=== PATIENT | female | born 1960 | race African-American/Black ===

== ENCOUNTER 2022-04-30 09:08 | Inpatient (IN) ==
[2022-04-30 10:44] LABS: ABS Lymphocytes 2.2 10^3/ul (1.0-4.8); ABS Monocytes 0.7 10^3/ul (0-0.8); ABS Neutrophils 9.2 10^3/ul (1.5-7.7); Eosinophil % 0.3 %; Hematocrit 33 % (35-47); Hemoglobin 10.9 g/dL (12.0-16.0); Lymphocyte % 18.4 %; Mean Corpuscular HGB Conc 33 g/dL (31-36); Mean Corpuscular Hemoglobin 30 pg (27-31); Mean Corpuscular Volume 89 fL (80-97); Mean Platelet Volume 7.5 fL (7.4-10.4); Platelet Count 359 10^3/uL (150-450); Red Blood Count 3.66 10^6 /uL (3.70-4.87); Red Cell Distribution Width 13 % (10-15); White Blood Count 12.2 10^3/uL (3.5-10.8)
[2022-04-30 11:22] LABS: Albumin 3.9 g/dL (3.2-5.2); CO2 Carbon Dioxide 15 mmol/L (22-32); Chloride 94 mmol/L (101-111); Sodium 138 mmol/L (135-145)
[2022-04-30 11:23] LABS: Anion Gap 29 mmol/L (2-11)
[2022-04-30 11:28] LABS: ALT 14 U/L (7-52); Albumin/Globulin Ratio 1.3 (1-3); Alkaline Phosphatase 86 U/L (35-149); Blood Urea Nitrogen 109 mg/dL (6-24); Globulin 3.1 g/dL (2-4); Glucose 107 mg/dL (70-100); eGFR CKD-EPI 2.8 (>60)
[2022-04-30] MEDS ORDERED: Lactated Ringers 1000 ml BAG 1,000 ML IV ONE (11:44)
[2022-04-30] MEDS ORDERED: CALCIUM GLUCONATE 1GM/50ML NS 1 GM/50 ML BAG IV ONE (11:45)
[2022-04-30] MEDS ORDERED: Potassium Chlor 20 meq TAB.ER PO ONE ×3 (11:45→22:00)
[2022-04-30] MEDS: KCL 20 MEQ/100 ML IVPREMIX 20 MEQ/100 ML BAG IV SCH ×2 (12:03→14:57)
[2022-04-30 12:30] LABS: Potassium Redraw 2.9 mmol/L (3.5-5.0)
[2022-04-30 13:28] LABS: Phosphorus 9.7 mg/dL (2.5-5.0)
[2022-04-30] MEDS ORDERED: Lactated Ringers 1000 ml BAG 1,000 ML IV SCH (14:00)
[2022-04-30 14:06] LABS: Magnesium 0.9 mg/dL (1.9-2.7)
[2022-04-30] MEDS ORDERED: Magnesium Sulfate IV 3 GM in NS 0.9% 100 ml BAG 100 ML IVPB ONE (14:45)
[2022-04-30] MEDS: Magnesium Sulfate IV 3 GM in NS 0.9% 100 ml BAG 100 ML IVPB ONE ×2 (15:59→17:14)
[2022-04-30] MEDS: Heparin 5000 UNITS/ML 1 mL VIAL SUBCUT SCH ×2 (16:43→22:06)
[2022-04-30] MEDS: Lactated Ringers 1000 ml BAG 1,000 ML IV SCH ×2 (17:23→20:51)
[2022-04-30] MEDS: CALCIUM GLUCONATE 1GM/50ML NS 1 GM/50 ML BAG IV SCH (18:17)
[2022-04-30 19:26] LABS: Magnesium 1.9 mg/dL (1.9-2.7); Phosphorus 7.6 mg/dL (2.5-5.0); Potassium 3.1 mmol/L (3.5-5.0); eGFR CKD-EPI 3.3 (>60)
[2022-04-30 19:52] LABS: Vitamin D Total 25(OH) 14.3 ng/mL (20-50)
[2022-04-30 21:10] LABS: Urine Appearance Cloudy; Urine Bilirubin Negative (Negative); Urine Blood 1+ (Negative); Urine Color Yellow; Urine Glucose Negative (Negative); Urine Ketones Negative (Negative); Urine Nitrite Negative (Negative); Urine Protein 2+(100 mg/dL) (Negative); Urine Specific Gravity 1.017 (1.002-1.030); Urine Urobilinogen Negative (Negative)
[2022-04-30 21:24] LABS: Urine Bacteria 1+ (Absent); Urine Red Blood Cell 1+(3-5/hpf) (Absent); Urine Squamous Epithelial Cell Present (Absent); Urine White Blood Cell 2+(11-20/hpf) (Absent)
[2022-05-01] MEDS: CALCIUM GLUCONATE 1GM/50ML NS 1 GM/50 ML BAG IV SCH ×3 (01:00→14:18)
[2022-05-01] MEDS: Lactated Ringers 1000 ml BAG 1,000 ML IV SCH (01:55)
[2022-05-01 04:57] LABS: ABS Basophils 0.1 10^3/ul (0-0.2); ABS Eosinophils 0.1 10^3/ul (0-0.6); ABS Lymphocytes 1.7 10^3/ul (1.0-4.8); ABS Neutrophils 9.4 10^3/ul (1.5-7.7); Eosinophil % 0.6 %; Hematocrit 28 % (35-47); Hemoglobin 9.4 g/dL (12.0-16.0); Lymphocyte % 14.2 %; Mean Corpuscular HGB Conc 33 g/dL (31-36); Mean Corpuscular Hemoglobin 29 pg (27-31); Mean Corpuscular Volume 89 fL (80-97); Mean Platelet Volume 7.5 fL (7.4-10.4); Platelet Count 299 10^3/uL (150-450); Red Blood Count 3.21 10^6 /uL (3.70-4.87); Red Cell Distribution Width 13 % (10-15); White Blood Count 12.3 10^3/uL (3.5-10.8)
[2022-05-01 05:28] LABS: Magnesium 1.8 mg/dL (1.9-2.7); Phosphorus 6.9 mg/dL (2.5-5.0); eGFR CKD-EPI 3.2 (>60)
[2022-05-01 05:31] LABS: Calcium 5.8 mg/dL (8.6-10.3)
[2022-05-01] MEDS: Heparin 5000 UNITS/ML 1 mL VIAL SUBCUT SCH ×3 (06:11→21:54)
[2022-05-01] MEDS ORDERED: Magnesium Sulfate 2 gm BAG 2 GM/50 ML BAG IVPB ONE (07:17)
[2022-05-01] MEDS ORDERED: Potassium Chlor 20 meq TAB.ER PO ONE ×3 (07:18→14:59)
[2022-05-01] MEDS: Cholecalciferol (VIT D3) 1,000 unit TAB PO SCH (07:27)
[2022-05-01] MEDS ORDERED: Prochlorperazine 5 mg/ml 2 ml VIAL (10 mg) IV PRN (07:32)
[2022-05-01] MEDS ORDERED: Prochlorperazine 5 mg/ml 2 ml VIAL (10 mg) ONE (07:33)
[2022-05-01] MEDS ORDERED: Lactated Ringers 1000 ml BAG 1,000 ML IV ONE (09:32)
[2022-05-01 12:19] LABS: Anion Gap 16 mmol/L (2-11); Blood Urea Nitrogen 102 mg/dL (6-24); CO2 Carbon Dioxide 21 mmol/L (22-32); Chloride 101 mmol/L (101-111); Glucose 134 mg/dL (70-100); Sodium 138 mmol/L (135-145); eGFR CKD-EPI 3.7 (>60)
[2022-05-01 12:32] LABS: ALT 11 U/L (7-52); AST 13 U/L (13-39); Albumin 3.2 g/dL (3.2-5.2); Albumin/Globulin Ratio 1.4 (1-3); Alkaline Phosphatase 70 U/L (35-149); Globulin 2.3 g/dL (2-4); Total Protein 5.5 g/dL (6.4-8.9)
[2022-05-01 12:33] LABS: Calcium 6.5 mg/dL (8.6-10.3); Magnesium 2.6 mg/dL (1.9-2.7); Phosphorus 6.5 mg/dL (2.5-5.0)
[2022-05-01 13:31] LABS: Hepatitis B Surface Antigen Nonreactive (Nonreactive)
[2022-05-01 13:36] LABS: Hepatitis B Core IgM Nonreactive (Nonreactive)
[2022-05-01 13:48] LABS: Hepatitis B Surface Ab Not Immune (Immune)
[2022-05-01 16:45] LABS: Albumin 3.3 g/dL (3.2-5.2); Albumin/Globulin Ratio 1.4 (1-3); Calcium 6.8 mg/dL (8.6-10.3); Globulin 2.4 g/dL (2-4); Total Bilirubin 0.3 mg/dL (0.2-1.0); Total Protein 5.7 g/dL (6.4-8.9)
[2022-05-01] MEDS ORDERED: Calcium Gluconate 2 GM in NS 0.9% 100 ml BAG 100 ML IV ONE (18:11)
[2022-05-01] MEDS: CALCIUM GLUCONATE 1GM/50ML NS BAG IV SCH ×2 (19:15→21:53)
[2022-05-02] MEDS: KCL 20 MEQ/100 ML IVPREMIX 20 MEQ/100 ML BAG IV SCH ×2 (00:54→04:26)
[2022-05-02] MEDS ORDERED: Potassium Chlor 20 meq TAB.ER PO ONE ×2 (03:59→13:34)
[2022-05-02] MEDS: Heparin 5000 UNITS/ML 1 mL VIAL SUBCUT SCH ×3 (05:12→20:54)
[2022-05-02 05:58] LABS: ABS Lymphocytes 1.4 10^3/ul (1.0-4.8); ABS Monocytes 1.1 10^3/ul (0-0.8); ABS Neutrophils 9.3 10^3/ul (1.5-7.7); Eosinophil % 0.4 %; Hematocrit 29 % (35-47); Hemoglobin 9.5 g/dL (12.0-16.0); Mean Corpuscular HGB Conc 32 g/dL (31-36); Mean Corpuscular Hemoglobin 29 pg (27-31); Mean Corpuscular Volume 90 fL (80-97); Mean Platelet Volume 7.5 fL (7.4-10.4); Platelet Count 291 10^3/uL (150-450); Red Blood Count 3.26 10^6 /uL (3.70-4.87); Red Cell Distribution Width 13 % (10-15); White Blood Count 11.9 10^3/uL (3.5-10.8)
[2022-05-02 06:20] LABS: Calcium 7.2 mg/dL (8.6-10.3); Magnesium 1.9 mg/dL (1.9-2.7); Phosphorus 5.5 mg/dL (2.5-5.0); Potassium 3.8 mmol/L (3.5-5.0); eGFR CKD-EPI 5.9 (>60)
[2022-05-02] MEDS ORDERED: Lactated Ringers 1000 ml BAG 1,000 ML IV SCH (08:00)
[2022-05-02] MEDS: Cholecalciferol (VIT D3) 1,000 unit TAB PO SCH (08:59)
[2022-05-02] MEDS ORDERED: CALCIUM GLUCONATE 1GM/50ML NS 1 GM/50 ML BAG IV ONE (13:34)
[2022-05-03] MEDS: Heparin 5000 UNITS/ML 1 mL VIAL SUBCUT SCH ×3 (06:25→21:35)
[2022-05-03 06:37] LABS: ABS Basophils 0.1 10^3/ul (0-0.2); ABS Eosinophils 0.2 10^3/ul (0-0.6); ABS Lymphocytes 2.2 10^3/ul (1.0-4.8); ABS Monocytes 1.2 10^3/ul (0-0.8); Eosinophil % 1.2 %; Hematocrit 29 % (35-47); Hemoglobin 9.5 g/dL (12.0-16.0); Lymphocyte % 17.8 %; Mean Corpuscular HGB Conc 33 g/dL (31-36); Mean Corpuscular Hemoglobin 30 pg (27-31); Mean Corpuscular Volume 90 fL (80-97); Mean Platelet Volume 8.1 fL (7.4-10.4); Nucleated Red Blood Cells % 0.1; Platelet Count 266 10^3/uL (150-450); Red Blood Count 3.23 10^6 /uL (3.70-4.87); Red Cell Distribution Width 13 % (10-15); White Blood Count 12.6 10^3/uL (3.5-10.8)
[2022-05-03 06:51] LABS: Magnesium 1.3 mg/dL (1.9-2.7); eGFR CKD-EPI 9.9 (>60)
[2022-05-03] MEDS ORDERED: Magnesium Sulfate 2 gm BAG 2 GM/50 ML BAG IVPB ONE (07:37)
[2022-05-03] MEDS ORDERED: Sodium Bicarbonate 8.4% SYR 50 ml SYRINGE IV ONE (08:02)
[2022-05-03] MEDS: Cholecalciferol (VIT D3) 1,000 unit TAB PO SCH (08:38)
[2022-05-03] MEDS: Calcium Carb (TUMS) 500 mg CHEW TAB PO SCH ×2 (08:39→21:35)
[2022-05-03] MEDS: Sodium Bicarb 650 mg (ANTACID) TAB PO SCH ×3 (08:39→21:34)
[2022-05-03 16:15] LABS: Calcium 7.1 mg/dL (8.6-10.3); Magnesium 1.7 mg/dL (1.9-2.7); eGFR CKD-EPI 11.1 (>60)
[2022-05-04] MEDS: Heparin 5000 UNITS/ML 1 mL VIAL SUBCUT SCH ×3 (05:36→21:07)
[2022-05-04 06:37] LABS: ABS Basophils 0.1 10^3/ul (0-0.2); ABS Eosinophils 0.3 10^3/ul (0-0.6); ABS Lymphocytes 2.6 10^3/ul (1.0-4.8); ABS Monocytes 1.2 10^3/ul (0-0.8); ABS Neutrophils 8.6 10^3/ul (1.5-7.7); Eosinophil % 2.2 %; Hematocrit 27 % (35-47); Hemoglobin 8.8 g/dL (12.0-16.0); Lymphocyte % 20.2 %; Mean Corpuscular HGB Conc 33 g/dL (31-36); Mean Corpuscular Hemoglobin 30 pg (27-31); Mean Corpuscular Volume 90 fL (80-97); Mean Platelet Volume 8.1 fL (7.4-10.4); Platelet Count 231 10^3/uL (150-450); Red Blood Count 2.96 10^6 /uL (3.70-4.87); Red Cell Distribution Width 13 % (10-15); White Blood Count 12.7 10^3/uL (3.5-10.8)
[2022-05-04 06:54] LABS: Calcium 6.7 mg/dL (8.6-10.3); Magnesium 1.4 mg/dL (1.9-2.7); Potassium 3.5 mmol/L (3.5-5.0); eGFR CKD-EPI 12.8 (>60)
[2022-05-04] MEDS: Calcium Carb (TUMS) 500 mg CHEW TAB PO SCH ×2 (10:55→21:08)
[2022-05-04] MEDS: Sodium Bicarb 650 mg (ANTACID) TAB PO SCH ×3 (10:57→21:07)
[2022-05-04] MEDS: Cholecalciferol (VIT D3) 1,000 unit TAB PO SCH (10:57)
[2022-05-04] MEDS: Potassium Chlor 20 meq TAB.ER PO SCH (10:58)
[2022-05-04] MEDS ORDERED: Magnesium Sulfate 2 gm BAG 2 GM/50 ML BAG IVPB ONE (14:37)
[2022-05-04] MEDS: KCL 20 MEQ/100 ML IVPREMIX 20 MEQ/100 ML BAG IV SCH ×2 (15:43→18:17)
[2022-05-04] MEDS: Penicillin G Potassium IV 3,000,000 UNITS in NS 0.9% 100 ml BAG 100 ML IVPB SCH ×2 (17:46→21:08)
[2022-05-04] MEDS ORDERED: Magnesium Sulfate IV 1GM/100ML 1 GM/100 ML BAG IV ONE (20:08)
[2022-05-05] MEDS: Penicillin G Potassium IV 3,000,000 UNITS in NS 0.9% 100 ml BAG 100 ML IVPB SCH ×2 (04:41→10:05)
[2022-05-05] MEDS: Heparin 5000 UNITS/ML 1 mL VIAL SUBCUT SCH ×2 (05:57→15:28)
[2022-05-05 05:58] LABS: ABS Basophils 0.1 10^3/ul (0-0.2); ABS Eosinophils 0.2 10^3/ul (0-0.6); ABS Lymphocytes 2.7 10^3/ul (1.0-4.8); ABS Monocytes 1.2 10^3/ul (0-0.8); ABS Neutrophils 9.4 10^3/ul (1.5-7.7); Eosinophil % 1.8 %; Hematocrit 25 % (35-47); Hemoglobin 8.1 g/dL (12.0-16.0); Mean Corpuscular HGB Conc 32 g/dL (31-36); Mean Corpuscular Hemoglobin 29 pg (27-31); Mean Corpuscular Volume 91 fL (80-97); Mean Platelet Volume 7.8 fL (7.4-10.4); Platelet Count 216 10^3/uL (150-450); Red Blood Count 2.77 10^6 /uL (3.70-4.87); Red Cell Distribution Width 13 % (10-15); White Blood Count 13.6 10^3/uL (3.5-10.8)
[2022-05-05 06:25] LABS: Calcium 6.8 mg/dL (8.6-10.3); Magnesium 1.8 mg/dL (1.9-2.7); Potassium 4.1 mmol/L (3.5-5.0); eGFR CKD-EPI 16.7 (>60)
[2022-05-05] MEDS ORDERED: Magnesium Sulfate 2 gm BAG 2 GM/50 ML BAG IVPB ONE (07:15)
[2022-05-05] MEDS: Cholecalciferol (VIT D3) 1,000 unit TAB PO SCH (07:44)
[2022-05-05] MEDS: Sodium Bicarb 650 mg (ANTACID) TAB PO SCH ×2 (07:46→15:28)
[2022-05-05] MEDS: Potassium Chlor 20 meq TAB.ER PO SCH (07:46)
[2022-05-05] MEDS: Calcium Carb (TUMS) 500 mg CHEW TAB PO SCH (07:47)
[2022-05-05 07:56] LABS: Phosphorus 4.1 mg/dL (2.5-5.0)
[2022-05-05 15:20] VITALS: BP 132/82
[2022-05-05 15:39] LABS: HIV 4th Generation Nonreactive (Nonreactive)
[2022-05-08 13:25] LABS: Albumin 2.5 g/dL (3.4-4.7); Albumin/Globulin Ratio 1.01; Gamma Globulin 0.7 g/dL (0.6-1.6); Total Protein(PEP) 4.9 g/dL (6.3 - 7.9)
== END 2022-05-05 17:16 | disposition home or self-care (01) | DRG 469 ==
LOC: ED 09:08 → SUATTDRO 12:33 → EDHOLD 12:33 → ICU 16:01 → MEDTELE 05-01 09:53
PROVIDERS: ADMIT Internal Medicine; ATTEND Internal Medicine

== ENCOUNTER 2023-02-19 19:37 | Inpatient (IN) ==
[2023-02-20 02:49] LABS: ABS Basophils 0.1 10^3/uL (0.0-0.1); ABS Monocytes 1.4 10^3/uL (0.0-0.9); ABS Neutrophils 17.5 10^3/uL (1.5-7.6); ABS Nucleated RBC 0.05 10^3/ul; Hematocrit 40.1 % (35-45); Hemoglobin 13.4 g/dL (11.5-14.3); Lymphocyte % 5.2 %; Mean Corpuscular Hemoglobin 30.6 pg (27-33); Mean Corpuscular Hgb Conc 33.4 g/dL (31-36); Mean Corpuscular Volume 91.7 fL (80-97); Mean Platelet Volume 7.5 fL (7.5-11.2); Nucleated Red Blood Cells % 0.3 /100 WBC (0.0-0.4); Platelet Count 337 10^3/uL (150-450); Red Blood Count 4.37 10^6/uL (3.63-4.92); Red Cell Distribution Width 13.6 % (12-17)
[2023-02-20 03:06] LABS: ALT 8 U/L (7-52); AST 12 U/L (13-39); Albumin 4.2 g/dL (3.2-5.2); Albumin/Globulin Ratio 1.3 (1-3); Alkaline Phosphatase 66 U/L (35-149); Blood Urea Nitrogen 122 mg/dL (6-24); C Reactive Protein 24.43 mg/L (<8.01); Calcium 7.9 mg/dL (8.6-10.3); Chloride 99 mmol/L (101-111); Creatinine, Serum 7.51 mg/dL (0.51-0.95); Globulin 3.2 g/dL (2-4); Glucose 143 mg/dL (70-100); Lipase < 10 U/L (11.0-82.0); Potassium 4.4 mmol/L (3.5-5.0); Sodium 132 mmol/L (135-145); Total Protein 7.4 g/dL (6.4-8.9); eGFR CKD-EPI 5.6 (>60)
[2023-02-20 03:10] LABS: Anion Gap 20 mmol/L (2-16); CO2 Carbon Dioxide 13 mmol/L (22-32)
[2023-02-20] MEDS ORDERED: NS 0.9% 1000 ml BAG 2,000 ML IV ONE (03:58)
[2023-02-20 08:54] LABS: Creatinine, Serum 6.66 mg/dL (0.51-0.95); Potassium 3.7 mmol/L (3.5-5.0); eGFR CKD-EPI 6.5 (>60)
[2023-02-20 09:13] LABS: Calcium 5.8 mg/dL (8.6-10.3)
[2023-02-20] MEDS ORDERED: Pantoprazole VIAL 40 MG VIAL IV ONE (09:34)
[2023-02-20] MEDS ORDERED: SODIUM BICARB IV ONE (10:00)
[2023-02-20] MEDS ORDERED: D5LR IV SCH (10:00)
[2023-02-20] MEDS ORDERED: [UNRECOGNIZED DRUG - OTHER] IV SCH (10:00)
[2023-02-20] MEDS ORDERED: [UNRECOGNIZED DRUG - OTHER] IV ONE (10:00)
[2023-02-20] MEDS ORDERED: POTASSIUM CHLORIDE IV ONE (10:00)
[2023-02-20] MEDS ORDERED: SODIUM BICARB IV SCH (10:00)
[2023-02-20 10:15] LABS: Magnesium 1.2 mg/dL (1.9-2.7)
[2023-02-20 10:18] LABS: Urine Appearance Cloudy; Urine Bilirubin Negative (Negative); Urine Blood Negative (Negative); Urine Color Yellow; Urine Glucose Negative (Negative); Urine Ketones Negative (Negative); Urine Nitrite Negative (Negative); Urine Protein 1+(30 mg/dL) (Negative); Urine Specific Gravity 1.019 (1.002-1.030); Urine Urobilinogen Negative (Negative)
[2023-02-20 11:09] LABS: Urine Bacteria 1+ (Absent); Urine Red Blood Cell Trace(0-2/hpf) (Absent); Urine Squamous Epithelial Cell Present (Absent); Urine Transitional Epithelial Present (Absent); Urine White Blood Cell 1+(6-10/hpf) (Absent)
[2023-02-20] MEDS ORDERED: Magnesium Sulfate 2 gm BAG 2 GM/50 ML BAG IVPB ONE (13:50)
[2023-02-20] MEDS ORDERED: cloNIDine 0.3 MG PATCH 0.3 MG/24 HR 7 DAY PATCH TRANSDERM SCH (15:00)
[2023-02-20] MEDS: CALCIUM GLUCONATE 1GM/50ML NS 1 GM/50 ML BAG IV SCH ×2 (17:29→20:16)
[2023-02-20] MEDS: PTO:Pancrelipase 36,000 units (NF) PO SCH (17:33)
[2023-02-20] MEDS: Sodium Bicarb 650 mg (ANTACID) TAB PO SCH (20:11)
[2023-02-20] MEDS: Calcium Carb (TUMS) 500 mg CHEW TAB PO SCH (20:15)
[2023-02-20] MEDS ORDERED: Calcium Carb (TUMS) 500 mg CHEW TAB PO SCH (21:00)
[2023-02-20] MEDS: Sucralfate 1 gm SUSP 1 GM/10 ML UDC PO SCH (21:56)
[2023-02-21 00:04] LABS: Hematocrit 29.7 % (35-45); Mean Corpuscular Hemoglobin 30.4 pg (27-33); Mean Corpuscular Hgb Conc 33.6 g/dL (31-36); Mean Corpuscular Volume 90.4 fL (80-97); Mean Platelet Volume 7.5 fL (7.5-11.2); Platelet Count 267 10^3/uL (150-450); Red Blood Count 3.29 10^6/uL (3.63-4.92); Red Cell Distribution Width 13.8 % (12-17); White Blood Count 14.5 10^3/uL (3.8-11.8)
[2023-02-21 00:21] LABS: Albumin 3.1 g/dL (3.2-5.2); Calcium 7.6 mg/dL (8.6-10.3); Creatinine, Serum 6.57 mg/dL (0.51-0.95); Magnesium 1.9 mg/dL (1.9-2.7); Phosphorus 5.9 mg/dL (2.5-5.0); Potassium 3.9 mmol/L (3.5-5.0); eGFR CKD-EPI 6.6 (>60)
[2023-02-21 04:56] LABS: Hematocrit 27.9 % (35-45); Hemoglobin 9.5 g/dL (11.5-14.3); Mean Corpuscular Hemoglobin 30.8 pg (27-33); Mean Corpuscular Hgb Conc 34.1 g/dL (31-36); Mean Corpuscular Volume 90.3 fL (80-97); Mean Platelet Volume 7.6 fL (7.5-11.2); Platelet Count 253 10^3/uL (150-450); Red Blood Count 3.09 10^6/uL (3.63-4.92); Red Cell Distribution Width 13.2 % (12-17); White Blood Count 13.4 10^3/uL (3.8-11.8)
[2023-02-21 05:13] LABS: Calcium 7.3 mg/dL (8.6-10.3); Creatinine, Serum 6.25 mg/dL (0.51-0.95); Magnesium 1.9 mg/dL (1.9-2.7); Potassium 3.9 mmol/L (3.5-5.0)
[2023-02-21] MEDS: Sucralfate 1 gm SUSP 1 GM/10 ML UDC PO SCH ×4 (05:51→22:00)
[2023-02-21] MEDS: PTO:Pancrelipase 36,000 units (NF) PO SCH ×3 (08:59→17:34)
[2023-02-21] MEDS: Sodium Bicarb 650 mg (ANTACID) TAB PO SCH ×3 (09:00→21:59)
[2023-02-21] MEDS: Calcium Carb (TUMS) 500 mg CHEW TAB PO SCH ×2 (09:00→21:59)
[2023-02-21] MEDS: CALCIUM GLUCONATE 1GM/50ML NS 1 GM/50 ML BAG IV SCH ×4 (09:02→21:58)
[2023-02-21] MEDS ORDERED: Lactated Ringers 1000 ml BAG 1,000 ML IV SCH (11:00)
[2023-02-21] MEDS: Enoxaparin 30 MG/0.3 ML SYR SUBCUT SCH (11:51)
[2023-02-22 06:18] LABS: Hematocrit 26.8 % (35-45); Hemoglobin 9.3 g/dL (11.5-14.3); Mean Corpuscular Hemoglobin 31.2 pg (27-33); Mean Corpuscular Hgb Conc 34.5 g/dL (31-36); Mean Corpuscular Volume 90.4 fL (80-97); Mean Platelet Volume 7.3 fL (7.5-11.2); Platelet Count 254 10^3/uL (150-450); Red Blood Count 2.97 10^6/uL (3.63-4.92); Red Cell Distribution Width 13.5 % (12-17); White Blood Count 10.2 10^3/uL (3.8-11.8)
[2023-02-22 06:34] LABS: Calcium 8.6 mg/dL (8.6-10.3); Creatinine, Serum 3.09 mg/dL (0.51-0.95); Potassium 3.5 mmol/L (3.5-5.0); eGFR CKD-EPI 16.3 (>60)
[2023-02-22] MEDS: Sucralfate 1 gm SUSP 1 GM/10 ML UDC PO SCH ×4 (07:37→20:03)
[2023-02-22] MEDS: PTO:Pancrelipase 36,000 units (NF) PO SCH ×3 (09:55→17:46)
[2023-02-22] MEDS: Calcium Carb (TUMS) 500 mg CHEW TAB PO SCH ×2 (09:56→20:03)
[2023-02-22] MEDS: Sodium Bicarb 650 mg (ANTACID) TAB PO SCH ×3 (09:57→20:03)
[2023-02-22] MEDS: Enoxaparin 30 MG/0.3 ML SYR SUBCUT SCH (09:58)
[2023-02-23 06:14] LABS: Mean Corpuscular Hemoglobin 31.4 pg (27-33); Mean Corpuscular Hgb Conc 34.7 g/dL (31-36); Mean Corpuscular Volume 90.4 fL (80-97); Mean Platelet Volume 7.2 fL (7.5-11.2); Platelet Count 264 10^3/uL (150-450); Red Blood Count 2.87 10^6/uL (3.63-4.92); Red Cell Distribution Width 13.6 % (12-17); White Blood Count 9.2 10^3/uL (3.8-11.8)
[2023-02-23 06:31] LABS: Calcium 8.3 mg/dL (8.6-10.3); Creatinine, Serum 2.01 mg/dL (0.51-0.95); Potassium 3.5 mmol/L (3.5-5.0); eGFR CKD-EPI 27.4 (>60)
[2023-02-23] MEDS: Sucralfate 1 gm SUSP 1 GM/10 ML UDC PO SCH ×4 (07:43→19:56)
[2023-02-23 08:06] LABS: Magnesium 1.5 mg/dL (1.9-2.7)
[2023-02-23] MEDS: PTO:Pancrelipase 36,000 units (NF) PO SCH ×3 (08:37→17:35)
[2023-02-23] MEDS: Sodium Bicarb 650 mg (ANTACID) TAB PO SCH ×3 (08:38→19:55)
[2023-02-23] MEDS: Calcium Carb (TUMS) 500 mg CHEW TAB PO SCH ×2 (08:38→19:55)
[2023-02-23] MEDS: Enoxaparin 30 MG/0.3 ML SYR SUBCUT SCH (12:44)
[2023-02-24] MEDS: Sucralfate 1 gm SUSP 1 GM/10 ML UDC PO SCH ×4 (09:13→22:24)
[2023-02-24] MEDS: PTO:Pancrelipase 36,000 units (NF) PO SCH ×3 (09:13→17:36)
[2023-02-24] MEDS: Sodium Bicarb 650 mg (ANTACID) TAB PO SCH ×3 (09:13→22:24)
[2023-02-24] MEDS: Calcium Carb (TUMS) 500 mg CHEW TAB PO SCH ×2 (09:13→22:24)
[2023-02-24 10:13] LABS: Creatinine, Serum 1.69 mg/dL (0.51-0.95); Potassium 3.6 mmol/L (3.5-5.0)
[2023-02-24 10:14] LABS: Calcium 8.3 mg/dL (8.6-10.3); Magnesium 1.3 mg/dL (1.9-2.7); eGFR CKD-EPI 33.7 (>60)
[2023-02-24] MEDS: Enoxaparin 30 MG/0.3 ML SYR SUBCUT SCH (11:07)
[2023-02-24] MEDS ORDERED: Magnesium Sulf 4 GM/100 ML IV 4,000 MG/100 ML BAG IVPB ONE (13:37)
[2023-02-25 06:35] LABS: Calcium 8.7 mg/dL (8.6-10.3); Creatinine, Serum 1.39 mg/dL (0.51-0.95); Potassium 3.6 mmol/L (3.5-5.0); eGFR CKD-EPI 42.6 (>60)
[2023-02-25] MEDS: Sucralfate 1 gm SUSP 1 GM/10 ML UDC PO SCH ×2 (08:09→12:52)
[2023-02-25] MEDS: Sodium Bicarb 650 mg (ANTACID) TAB PO SCH ×2 (08:11→12:52)
[2023-02-25] MEDS: PTO:Pancrelipase 36,000 units (NF) PO SCH ×2 (08:11→12:52)
[2023-02-25] MEDS: Calcium Carb (TUMS) 500 mg CHEW TAB PO SCH (08:12)
[2023-02-25 09:55] VITALS: BP 168/92
[2023-02-25] MEDS: Enoxaparin 30 MG/0.3 ML SYR SUBCUT SCH (12:52)
== END 2023-02-25 13:15 | disposition home or self-care (01) | DRG 683 ==
LOC: ED 19:37 → SUATTDRO 02-20 09:49 → EDHOLD 02-20 09:49 → ICU 02-20 12:00 → UNDODISIN 02-20 13:08 → MED 02-20 16:00
PROVIDERS: ADMIT Internal Medicine Critical Care Medicine; ATTEND Internal Medicine

== ENCOUNTER 2023-03-04 11:11 | Inpatient (IN) ==
[2023-03-04] MEDS ORDERED: Lactated Ringers 1000 ml BAG 1,000 ML IV ONE ×2 (13:08→17:10)
[2023-03-04 13:29] LABS: Hematocrit 34.8 % (35-45); Hemoglobin 11.6 g/dL (11.5-14.3); Mean Corpuscular Hemoglobin 30.1 pg (27-33); Mean Corpuscular Hgb Conc 33.3 g/dL (31-36); Mean Corpuscular Volume 90.4 fL (80-97); Platelet Count 479 10^3/uL (150-450); Red Blood Count 3.85 10^6/uL (3.63-4.92); Red Cell Distribution Width 13.5 % (12-17); White Blood Count 20.7 10^3/uL (3.8-11.8)
[2023-03-04 13:41] LABS: Albumin 4.3 g/dL (3.2-5.2); Anion Gap 10 mmol/L (2-16); CO2 Carbon Dioxide 24 mmol/L (22-32); Calcium 9.2 mg/dL (8.6-10.3); Chloride 106 mmol/L (101-111); Potassium 3.9 mmol/L (3.5-5.0); Sodium 140 mmol/L (135-145)
[2023-03-04 13:47] LABS: ALT 10 U/L (7-52); AST 14 U/L (13-39); Albumin/Globulin Ratio 1.2 (1-3); Alkaline Phosphatase 72 U/L (35-149); Blood Urea Nitrogen 54 mg/dL (6-24); Creatinine, Serum 4.21 mg/dL (0.51-0.95); Globulin 3.5 g/dL (2-4); Glucose 111 mg/dL (70-100); Lipase < 10 U/L (11.0-82.0); Total Protein 7.8 g/dL (6.4-8.9); eGFR CKD-EPI 11.3 (>60)
[2023-03-04] MEDS ORDERED: Ondansetron 4 mg VIAL 2 MG/ML 2 ml VIAL IV PRN (17:24)
[2023-03-04] MEDS: Morphine 2 MG/ML SYRINGE IV PRN (18:06)
[2023-03-04] MEDS: Lactated Ringers 1000 ml BAG 1,000 ML IV SCH (20:36)
[2023-03-04 21:00] LABS: Calcium 8.5 mg/dL (8.6-10.3); Potassium 3.6 mmol/L (3.5-5.0)
[2023-03-04 21:06] LABS: Creatinine, Serum 3.94 mg/dL (0.51-0.95); eGFR CKD-EPI 12.2 (>60)
[2023-03-04] MEDS: Pantoprazole VIAL 40 MG VIAL IV SCH (22:19)
[2023-03-04] MEDS: Calcium Carb (TUMS) 500 mg CHEW TAB PO SCH (22:19)
[2023-03-04] MEDS: Sodium Bicarb 650 mg (ANTACID) TAB PO SCH (22:20)
[2023-03-05] MEDS: Lactated Ringers 1000 ml BAG 1,000 ML IV SCH ×2 (03:20→10:53)
[2023-03-05 03:35] LABS: Urine Appearance Cloudy; Urine Bilirubin Negative (Negative); Urine Blood Negative (Negative); Urine Color Yellow; Urine Glucose Negative (Negative); Urine Ketones Negative (Negative); Urine Nitrite Negative (Negative); Urine Protein 1+(30 mg/dL) (Negative); Urine Specific Gravity 1.013 (1.002-1.030); Urine Urobilinogen Negative (Negative)
[2023-03-05 03:45] LABS: Urine Bacteria 1+ (Absent); Urine Red Blood Cell 1+(3-5/hpf) (Absent); Urine Squamous Epithelial Cell Present (Absent); Urine White Blood Cell 1+(6-10/hpf) (Absent)
[2023-03-05 06:40] LABS: ABS Basophils 0.1 10^3/uL (0.0-0.1); ABS Eosinophils 0.2 10^3/uL (0.0-0.5); ABS Lymphocytes 2.6 10^3/uL (1.0-4.8); ABS Monocytes 1.3 10^3/uL (0.0-0.9); ABS Neutrophils 13.4 10^3/uL (1.5-7.6); Hematocrit 25.8 % (35-45); Hemoglobin 8.7 g/dL (11.5-14.3); Lymphocyte % 14.8 %; Mean Corpuscular Hemoglobin 30.6 pg (27-33); Mean Corpuscular Hgb Conc 33.8 g/dL (31-36); Mean Corpuscular Volume 90.7 fL (80-97); Mean Platelet Volume 6.9 fL (7.5-11.2); Platelet Count 350 10^3/uL (150-450); Red Blood Count 2.85 10^6/uL (3.63-4.92); Red Cell Distribution Width 13.5 % (12-17); White Blood Count 17.6 10^3/uL (3.8-11.8)
[2023-03-05 07:00] LABS: Anion Gap 6 mmol/L (2-16); Blood Urea Nitrogen 47 mg/dL (6-24); CO2 Carbon Dioxide 22 mmol/L (22-32); Calcium 8.1 mg/dL (8.6-10.3); Chloride 111 mmol/L (101-111); Creatinine, Serum 3.19 mg/dL (0.51-0.95); Glucose 79 mg/dL (70-100); Potassium 3.9 mmol/L (3.5-5.0); Sodium 139 mmol/L (135-145); eGFR CKD-EPI 15.7 (>60)
[2023-03-05 08:19] LABS: Urine Appearance Cloudy; Urine Bilirubin Negative (Negative); Urine Blood Negative (Negative); Urine Color Yellow; Urine Glucose Negative (Negative); Urine Ketones Negative (Negative); Urine Nitrite Negative (Negative); Urine Protein Negative (Negative); Urine Specific Gravity 1.012 (1.002-1.030); Urine Urobilinogen Negative (Negative)
[2023-03-05] MEDS: PTO: Pancrelipase 36,000 units (NF) PO SCH ×3 (10:09→17:59)
[2023-03-05] MEDS: Pantoprazole VIAL 40 MG VIAL IV SCH ×2 (10:47→21:40)
[2023-03-05] MEDS: Morphine 2 MG/ML SYRINGE IV PRN ×2 (13:49→21:54)
[2023-03-05] MEDS: Cholecalciferol (VIT D3) 1,000 unit TAB PO SCH (13:50)
[2023-03-05] MEDS: Sodium Bicarb 650 mg (ANTACID) TAB PO SCH ×3 (13:51→21:38)
[2023-03-05] MEDS: Calcium Carb (TUMS) 500 mg CHEW TAB PO SCH ×2 (13:54→21:39)
[2023-03-05 14:46] LABS: C Reactive Protein < 1.00 mg/L (<8.01)
[2023-03-05 16:11] LABS: ABS Basophils 0.1 10^3/uL (0.0-0.1); ABS Eosinophils 0.2 10^3/uL (0.0-0.5); ABS Lymphocytes 2.4 10^3/uL (1.0-4.8); ABS Monocytes 1.1 10^3/uL (0.0-0.9); ABS Neutrophils 11.4 10^3/uL (1.5-7.6); ABS Nucleated RBC 0.02 10^3/ul; Eosinophil % 1.4 %; Hematocrit 24.5 % (35-45); Hemoglobin 8.2 g/dL (11.5-14.3); Mean Corpuscular Hemoglobin 30.5 pg (27-33); Mean Corpuscular Hgb Conc 33.7 g/dL (31-36); Mean Corpuscular Volume 90.5 fL (80-97); Mean Platelet Volume 6.6 fL (7.5-11.2); Nucleated Red Blood Cells % 0.1 /100 WBC (0.0-0.4); Platelet Count 344 10^3/uL (150-450); Red Blood Count 2.71 10^6/uL (3.63-4.92); Red Cell Distribution Width 13.7 % (12-17); White Blood Count 15.3 10^3/uL (3.8-11.8)
[2023-03-05] MEDS ORDERED: Lactated Ringers 1000 ml BAG 1,000 ML IV ONE (17:32)
[2023-03-05] MEDS: Polyethylene Glycol 3350 17 GM PACKET PO SCH (18:11)
[2023-03-05 18:32] LABS: Erythrocyte Sed Rate 16 mm/Hr (0-29)
[2023-03-06 05:59] LABS: ABS Basophils 0.1 10^3/uL (0.0-0.1); ABS Eosinophils 0.2 10^3/uL (0.0-0.5); ABS Lymphocytes 2.3 10^3/uL (1.0-4.8); ABS Monocytes 1.1 10^3/uL (0.0-0.9); ABS Neutrophils 7.2 10^3/uL (1.5-7.6); Eosinophil % 1.9 %; Hematocrit 24.2 % (35-45); Hemoglobin 8.4 g/dL (11.5-14.3); Lymphocyte % 21.3 %; Mean Corpuscular Hemoglobin 31.4 pg (27-33); Mean Corpuscular Hgb Conc 34.6 g/dL (31-36); Mean Corpuscular Volume 90.8 fL (80-97); Mean Platelet Volume 6.8 fL (7.5-11.2); Platelet Count 324 10^3/uL (150-450); Red Blood Count 2.67 10^6/uL (3.63-4.92); Red Cell Distribution Width 13.2 % (12-17)
[2023-03-06 06:12] LABS: Calcium 8.2 mg/dL (8.6-10.3); Creatinine, Serum 1.91 mg/dL (0.51-0.95); Potassium 3.8 mmol/L (3.5-5.0); eGFR CKD-EPI 29.1 (>60)
[2023-03-06] MEDS: Pantoprazole VIAL 40 MG VIAL IV SCH ×2 (08:16→21:23)
[2023-03-06] MEDS: Cholecalciferol (VIT D3) 1,000 unit TAB PO SCH (08:16)
[2023-03-06] MEDS: Calcium Carb (TUMS) 500 mg CHEW TAB PO SCH ×2 (08:16→21:24)
[2023-03-06] MEDS: Polyethylene Glycol 3350 17 GM PACKET PO SCH (08:16)
[2023-03-06] MEDS: Sodium Bicarb 650 mg (ANTACID) TAB PO SCH ×3 (08:17→21:23)
[2023-03-06] MEDS: PTO: Pancrelipase 36,000 units (NF) PO SCH ×3 (10:40→17:33)
[2023-03-07] MEDS: PTO: Pancrelipase 36,000 units (NF) PO SCH ×3 (08:35→16:26)
[2023-03-07] MEDS: Calcium Carb (TUMS) 500 mg CHEW TAB PO SCH ×2 (08:35→21:34)
[2023-03-07] MEDS: Polyethylene Glycol 3350 17 GM PACKET PO SCH (08:36)
[2023-03-07] MEDS: Cholecalciferol (VIT D3) 1,000 unit TAB PO SCH (08:36)
[2023-03-07] MEDS: Sodium Bicarb 650 mg (ANTACID) TAB PO SCH ×3 (08:37→21:34)
[2023-03-07] MEDS: Pantoprazole VIAL 40 MG VIAL IV SCH ×2 (08:38→21:34)
[2023-03-07] MEDS ORDERED: cloNIDine 0.3 MG PATCH 0.3 MG/24 HR 7 DAY PATCH TRANSDERM SCH (09:00)
[2023-03-07] MEDS ORDERED: Glycerin ADULT 2.4 gm SUPP PR PRN (14:26)
[2023-03-07] MEDS: Morphine 2 MG/ML SYRINGE IV PRN (22:40)
[2023-03-08 05:56] LABS: ABS Basophils 0.1 10^3/uL (0.0-0.1); ABS Eosinophils 0.3 10^3/uL (0.0-0.5); ABS Lymphocytes 2.3 10^3/uL (1.0-4.8); ABS Monocytes 0.9 10^3/uL (0.0-0.9); ABS Neutrophils 6.1 10^3/uL (1.5-7.6); Eosinophil % 2.6 %; Hematocrit 25.3 % (35-45); Hemoglobin 8.7 g/dL (11.5-14.3); Lymphocyte % 23.5 %; Mean Corpuscular Hgb Conc 34.5 g/dL (31-36); Mean Corpuscular Volume 89.8 fL (80-97); Mean Platelet Volume 6.8 fL (7.5-11.2); Platelet Count 350 10^3/uL (150-450); Red Blood Count 2.82 10^6/uL (3.63-4.92); White Blood Count 9.6 10^3/uL (3.8-11.8)
[2023-03-08 06:20] LABS: Albumin 3.3 g/dL (3.2-5.2); Albumin/Globulin Ratio 1.4 (1-3); Calcium 8.5 mg/dL (8.6-10.3); Creatinine, Serum 1.44 mg/dL (0.51-0.95); Globulin 2.4 g/dL (2-4); Potassium 3.9 mmol/L (3.5-5.0); Total Bilirubin 0.2 mg/dL (0.2-1.0); Total Protein 5.7 g/dL (6.4-8.9); eGFR CKD-EPI 40.9 (>60)
[2023-03-08] MEDS: Pantoprazole VIAL 40 MG VIAL IV SCH ×2 (08:33→20:51)
[2023-03-08] MEDS: Cholecalciferol (VIT D3) 1,000 unit TAB PO SCH (08:35)
[2023-03-08] MEDS: Calcium Carb (TUMS) 500 mg CHEW TAB PO SCH ×2 (08:35→20:50)
[2023-03-08] MEDS: Sodium Bicarb 650 mg (ANTACID) TAB PO SCH ×3 (08:36→20:51)
[2023-03-08] MEDS: PTO: Pancrelipase 36,000 units (NF) PO SCH ×3 (08:37→17:14)
[2023-03-08] MEDS: Polyethylene Glycol 3350 17 GM PACKET PO SCH (08:53)
[2023-03-08] MEDS: Morphine 2 MG/ML SYRINGE IV PRN (21:11)
[2023-03-09] MEDS: Morphine 2 MG/ML SYRINGE IV PRN (03:34)
[2023-03-09 06:13] LABS: Albumin 3.2 g/dL (3.2-5.2); Albumin/Globulin Ratio 1.4 (1-3); Calcium 8.5 mg/dL (8.6-10.3); Creatinine, Serum 1.47 mg/dL (0.51-0.95); Globulin 2.3 g/dL (2-4); Magnesium 1.3 mg/dL (1.9-2.7); Potassium 4.2 mmol/L (3.5-5.0); Total Bilirubin 0.2 mg/dL (0.2-1.0); Total Protein 5.5 g/dL (6.4-8.9); eGFR CKD-EPI 39.9 (>60)
[2023-03-09] MEDS: PTO: Pancrelipase 36,000 units (NF) PO SCH ×2 (08:07→12:17)
[2023-03-09] MEDS: Calcium Carb (TUMS) 500 mg CHEW TAB PO SCH (08:08)
[2023-03-09] MEDS: Pantoprazole VIAL 40 MG VIAL IV SCH (08:08)
[2023-03-09] MEDS: Cholecalciferol (VIT D3) 1,000 unit TAB PO SCH (08:08)
[2023-03-09] MEDS: Sodium Bicarb 650 mg (ANTACID) TAB PO SCH (08:08)
[2023-03-09] MEDS: Polyethylene Glycol 3350 17 GM PACKET PO SCH (08:09)
[2023-03-09] MEDS ORDERED: Magnesium Sulf 4 GM/100 ML IV 4,000 MG/100 ML BAG IVPB ONE (09:11)
[2023-03-09] MEDS ORDERED: Polyethylene Glycol 3350 17 GM PACKET PO PRN (10:48)
[2023-03-09 14:24] VITALS: BP 117/75
== END 2023-03-09 13:00 | disposition home or self-care (01) | DRG 683 ==
LOC: ED 11:11 → SUATTDRO 16:52 → EDHOLD 16:52 → MEDTELE 21:33
PROVIDERS: ADMIT Internal Medicine; ATTEND Internal Medicine

== ENCOUNTER 2023-06-20 07:00 | Inpatient (IN) ==
[2023-06-20] MEDS ORDERED: Ondansetron 4 mg VIAL 2 MG/ML 2 ml VIAL IV ONE (07:28)
[2023-06-20] MEDS ORDERED: Lactated Ringers 1000 ml BAG 1,000 ML IV ONE ×2 (07:43→09:14)
[2023-06-20] MEDS ORDERED: Al Hydrox/Mg Hydrox/Simet LIQ 30 ML UDC ONE (07:51)
[2023-06-20] MEDS ORDERED: Al Hydrox/Mg Hydrox/Simet LIQ 30 ML UDC PO ONE (07:53)
[2023-06-20] MEDS ORDERED: Morphine 4 MG/ML VIAL (1 ml) IV ONE ×2 (08:10→09:22)
[2023-06-20 08:14] LABS: ABS Basophils 0.1 10^3/uL (0.0-0.1); ABS Lymphocytes 1.5 10^3/uL (1.0-4.8); ABS Monocytes 0.8 10^3/uL (0.0-0.9); ABS Neutrophils 15.4 10^3/uL (1.5-7.6); ABS Nucleated RBC 0.04 10^3/ul; Hematocrit 45.8 % (35-45); Hemoglobin 15.2 g/dL (11.5-14.3); Lymphocyte % 8.6 %; Mean Corpuscular Hemoglobin 30.1 pg (27-33); Mean Corpuscular Hgb Conc 33.1 g/dL (31-36); Mean Corpuscular Volume 90.9 fL (80-97); Mean Platelet Volume 7.6 fL (7.5-11.2); Nucleated Red Blood Cells % 0.2 %/100WBC (0.0-0.8); Platelet Count 380 10^3/uL (150-450); Red Blood Count 5.04 10^6/uL (3.63-4.92); Red Cell Distribution Width 14.8 % (12-17); White Blood Count 17.8 10^3/uL (3.8-11.8)
[2023-06-20 08:49] LABS: High Sens Troponin Baseline 77 pg/mL (<15)
[2023-06-20 08:51] LABS: Anion Gap 29 mmol/L (2-16); Blood Urea Nitrogen 103 mg/dL (6-24); CO2 Carbon Dioxide 17 mmol/L (22-32); Calcium 9.7 mg/dL (8.6-10.3); Chloride 88 mmol/L (101-111); Glucose 242 mg/dL (70-100); Lipase < 10 U/L (11.0-82.0); Sodium 134 mmol/L (135-145); eGFR CKD-EPI 5.3 (>60)
[2023-06-20] MEDS ORDERED: CALCIUM GLUCONATE 1GM/50ML NS 1 GM/50 ML BAG IV ONE (09:41)
[2023-06-20 10:03] LABS: High Sensitivity Troponin 1 Hr 74 pg/mL (<15)
[2023-06-20 10:04] LABS: Lipase < 10 U/L (11.0-82.0)
[2023-06-20] MEDS ORDERED: Sodium Bicarbonate 8.4% SYR 50 ml SYRINGE IV ONE (10:07)
[2023-06-20] MEDS ORDERED: Dextrose 50% Syringe 50 ml 25 GM/50 ML SYRINGE IV PUSH ONE ×2 (10:08)
[2023-06-20 10:17] LABS: ALT 15 U/L (7-52); Albumin 5.2 g/dL (3.2-5.2); Albumin/Globulin Ratio 1.3 (1-3); Alkaline Phosphatase 81 U/L (35-149); Globulin 4.1 g/dL (2-4); Total Bilirubin 0.3 mg/dL (0.2-1.0); Total Protein 9.3 g/dL (6.4-8.9)
[2023-06-20 10:34] LABS: Potassium, Whole Blood 4.5 mmol/L (3.4-4.5)
[2023-06-20 10:49] LABS: Anion Gap 27 mmol/L (2-16); Blood Urea Nitrogen 99 mg/dL (6-24); CO2 Carbon Dioxide 17 mmol/L (22-32); Calcium 9.3 mg/dL (8.6-10.3); Chloride 94 mmol/L (101-111); Glucose 129 mg/dL (70-100); Potassium 4.3 mmol/L (3.5-5.0); Sodium 138 mmol/L (135-145); eGFR CKD-EPI 5.8 (>60)
[2023-06-20 11:54] LABS: Lipase < 10 U/L (11.0-82.0)
[2023-06-20] MEDS ORDERED: cloNIDine 0.3 MG PATCH 0.3 MG/24 HR 7 DAY PATCH TRANSDERM SCH ×2 (13:00→16:00)
[2023-06-20 15:10] LABS: C Reactive Protein 4.72 mg/L (<8.01)
[2023-06-20] MEDS ORDERED: Ondansetron 4 mg VIAL 2 MG/ML 2 ml VIAL IV PRN (15:27)
[2023-06-20] MEDS ORDERED: Albuterol HFA INHALER 8 gm MDI INH PRN (15:31)
[2023-06-20] MEDS ORDERED: Lactated Ringers 1000 ml BAG 1,000 ML IV SCH (16:00)
[2023-06-20] MEDS: PTO:Pancrelipase 36,000 units (NF) PO SCH (17:45)
[2023-06-20] MEDS: Pantoprazole VIAL 40 MG VIAL IV SCH (18:47)
[2023-06-20 19:10] LABS: Hemoglobin 14.3 g/dL (11.5-14.3); Mean Corpuscular Hemoglobin 29.9 pg (27-33); Mean Corpuscular Hgb Conc 32.5 g/dL (31-36); Mean Corpuscular Volume 91.9 fL (80-97); Mean Platelet Volume 7.5 fL (7.5-11.2); Platelet Count 351 10^3/uL (150-450); Red Blood Count 4.79 10^6/uL (3.63-4.92); Red Cell Distribution Width 14.6 % (12-17); White Blood Count 13.4 10^3/uL (3.8-11.8)
[2023-06-20 19:28] LABS: Calcium 8.9 mg/dL (8.6-10.3); Creatinine, Serum 7.8 mg/dL (0.51-0.95); Potassium 5.4 mmol/L (3.5-5.0); eGFR CKD-EPI 5.3 (>60)
[2023-06-20] MEDS ORDERED: NS 0.9% 1000 ml BAG 1,000 ML IV SCH (20:00)
[2023-06-20] MEDS ORDERED: Morphine 4 MG/ML VIAL (1 ml) IV PRN (20:17)
[2023-06-20] MEDS ORDERED: Morphine 2 MG/ML SYRINGE IV PRN (20:18)
[2023-06-20] MEDS ORDERED: HYDROmorphone 1 MG/1 ML SYRINGE IV SLOW PU PRN (20:19)
[2023-06-20] MEDS: Calcium Carb (TUMS) 500 mg CHEW TAB PO SCH (21:27)
[2023-06-20] MEDS ORDERED: HYDROmorphone 0.5 MG/0.5 ML SYRINGE IV SLOW PU PRN (23:32)
[2023-06-21 00:08] LABS: Creatinine, Serum 7.96 mg/dL (0.51-0.95); Potassium 5.6 mmol/L (3.5-5.0); eGFR CKD-EPI 5.2 (>60)
[2023-06-21] MEDS: HYDROmorphone 1 MG/1 ML SYRINGE IV SLOW PU PRN ×2 (00:21→09:30)
[2023-06-21] MEDS: SODIUM ZIRCONIUM CYCLOSILICATE 10 GM PACKET PO SCH ×3 (02:34→15:27)
[2023-06-21 07:30] LABS: Hematocrit 40.6 % (35-45); Hemoglobin 13.2 g/dL (11.5-14.3); Mean Corpuscular Hgb Conc 32.4 g/dL (31-36); Mean Corpuscular Volume 92.4 fL (80-97); Mean Platelet Volume 7.8 fL (7.5-11.2); Platelet Count 253 10^3/uL (150-450); Red Cell Distribution Width 14.6 % (12-17); White Blood Count 10.6 10^3/uL (3.8-11.8)
[2023-06-21 07:45] LABS: Anion Gap 26 mmol/L (2-16); Blood Urea Nitrogen 114 mg/dL (6-24); CO2 Carbon Dioxide 12 mmol/L (22-32); Calcium 8.1 mg/dL (8.6-10.3); Chloride 94 mmol/L (101-111); Creatinine, Serum 8.25 mg/dL (0.51-0.95); Glucose 76 mg/dL (70-100); Sodium 132 mmol/L (135-145)
[2023-06-21 07:46] LABS: ABS Lymphocytes 0.9 10^3/uL (1.0-4.8); ABS Monocytes 0.9 10^3/uL (0.0-0.9); ABS Neutrophils 8.9 10^3/uL (1.5-7.6); ABS Nucleated RBC 0.06 10^3/ul; Lymphocyte % 8.6 %; Nucleated Red Blood Cells % 0.6 %/100WBC (0.0-0.8)
[2023-06-21 08:32] LABS: Venous Bicarbonate HCO3 15.5 mmol/L (24-28)
[2023-06-21] MEDS ORDERED: NS 0.9% 1000 ml BAG 1,000 ML IV ONE ×2 (09:22→13:54)
[2023-06-21] MEDS: Pantoprazole VIAL 40 MG VIAL IV SCH (09:30)
[2023-06-21] MEDS: PTO:Pancrelipase 36,000 units (NF) PO SCH ×3 (09:34→18:28)
[2023-06-21] MEDS: Calcium Carb (TUMS) 500 mg CHEW TAB PO SCH ×2 (09:55→20:29)
[2023-06-21] MEDS: Sodium Bicarb 8.4% Vial 50 ML 150 MEQ in D5W 1000 ml BAG 850 ML IV SCH ×2 (12:03→21:16)
[2023-06-21] MEDS ORDERED: NS 0.9% 1000 ml BAG 500 ML IV ONE ×2 (13:54→13:55)
[2023-06-21 14:06] LABS: Hematocrit 30.4 % (35-45); Hemoglobin 10.3 g/dL (11.5-14.3); Mean Corpuscular Hemoglobin 30.4 pg (27-33); Mean Corpuscular Hgb Conc 33.7 g/dL (31-36); Mean Corpuscular Volume 90.4 fL (80-97); Mean Platelet Volume 7.7 fL (7.5-11.2); Platelet Count 225 10^3/uL (150-450); Red Blood Count 3.37 10^6/uL (3.63-4.92); Red Cell Distribution Width 14.5 % (12-17)
[2023-06-21 14:39] LABS: RBC Morphology Normal (Normal)
[2023-06-21 15:00] LABS: Calcium 7.1 mg/dL (8.6-10.3); Creatinine, Serum 8.37 mg/dL (0.51-0.95); Potassium 4.2 mmol/L (3.5-5.0); eGFR CKD-EPI 4.9 (>60)
[2023-06-21 15:58] LABS: C Reactive Protein 133.71 mg/L (<8.01)
[2023-06-21 20:06] LABS: ABS Lymphocytes 0.6 10^3/uL (1.0-4.8); ABS Monocytes 0.9 10^3/uL (0.0-0.9); ABS Neutrophils 8.5 10^3/uL (1.5-7.6); ABS Nucleated RBC 0.04 10^3/ul; Hematocrit 29.9 % (35-45); Hemoglobin 9.8 g/dL (11.5-14.3); Lymphocyte % 6.3 %; Mean Corpuscular Hgb Conc 32.8 g/dL (31-36); Mean Corpuscular Volume 91.7 fL (80-97); Mean Platelet Volume 8.3 fL (7.5-11.2); Nucleated Red Blood Cells % 0.4 %/100WBC (0.0-0.8); Platelet Count 201 10^3/uL (150-450); Red Blood Count 3.26 10^6/uL (3.63-4.92); Red Cell Distribution Width 14.5 % (12-17)
[2023-06-21 20:35] LABS: Calcium 6.9 mg/dL (8.6-10.3); Creatinine, Serum 8.12 mg/dL (0.51-0.95); eGFR CKD-EPI 5.1 (>60)
[2023-06-21 21:39] LABS: Potassium 4.2 mmol/L (3.5-5.0)
[2023-06-21 23:49] LABS: Total Protein 5.1 g/dL (6.4-8.9)
[2023-06-22] MEDS: Sodium Bicarb 8.4% Vial 50 ML 150 MEQ in D5W 1000 ml BAG 850 ML IV SCH (05:30)
[2023-06-22 05:44] LABS: Hematocrit 27.6 % (35-45); Hemoglobin 9.8 g/dL (11.5-14.3); Mean Corpuscular Hemoglobin 31.1 pg (27-33); Mean Corpuscular Hgb Conc 35.4 g/dL (31-36); Mean Corpuscular Volume 87.9 fL (80-97); Mean Platelet Volume 7.8 fL (7.5-11.2); Platelet Count 198 10^3/uL (150-450); Red Blood Count 3.14 10^6/uL (3.63-4.92); Red Cell Distribution Width 14.1 % (12-17); White Blood Count 9.5 10^3/uL (3.8-11.8)
[2023-06-22 05:58] LABS: Calcium 6.9 mg/dL (8.6-10.3); Creatinine, Serum 7.24 mg/dL (0.51-0.95); Magnesium 1.5 mg/dL (1.9-2.7); Potassium 3.3 mmol/L (3.5-5.0); eGFR CKD-EPI 5.8 (>60)
[2023-06-22] MEDS ORDERED: Potassium Chlor 20 meq TAB.ER PO ONE (06:58)
[2023-06-22] MEDS ORDERED: Magnesium Sulf 4 GM/100 ML IV 4,000 MG/100 ML BAG IVPB ONE (06:59)
[2023-06-22] MEDS ORDERED: Magnesium Sulfate IV 1GM/100ML 1 GM/100 ML BAG IV ONE (06:59)
[2023-06-22] MEDS ORDERED: KCL 20 MEQ/100 ML IVPREMIX 20 MEQ/100 ML BAG IV SCH (07:00)
[2023-06-22] MEDS: Calcium Carb (TUMS) 500 mg CHEW TAB PO SCH ×2 (08:20→20:30)
[2023-06-22] MEDS: Pantoprazole VIAL 40 MG VIAL IV SCH (08:20)
[2023-06-22 08:35] LABS: ABS Lymphocytes 0.6 10^3/uL (1.0-4.8); ABS Monocytes 0.6 10^3/uL (0.0-0.9); ABS Neutrophils 8.4 10^3/uL (1.5-7.6); ABS Nucleated RBC 0.06 10^3/ul; Lymphocyte % 5.8 %; Nucleated Red Blood Cells % 0.7 %/100WBC (0.0-0.8)
[2023-06-22 08:36] LABS: RBC Morphology Normal (Normal)
[2023-06-22] MEDS: PTO:Pancrelipase 36,000 units (NF) PO SCH ×3 (09:34→17:55)
[2023-06-22] MEDS ORDERED: Sodium Bicarbonate 8.4% 75 MEQ in HNS 0.45% 1000 ML BAG IV SCH (10:00)
[2023-06-22] MEDS ORDERED: Magnesium Sulfate 1 GM IV 1 GM/100 ML BAG IV ONE (10:00)
[2023-06-22] MEDS ORDERED: Magnesium Sulfate 2 gm BAG 2 GM/50 ML BAG IVPB ONE (10:12)
[2023-06-22 15:28] LABS: Creatinine, Serum 7.11 mg/dL (0.51-0.95); Potassium 3.6 mmol/L (3.5-5.0)
[2023-06-22] MEDS: NS 0.9% 1000 ml BAG 1,000 ML IV SCH (20:28)
[2023-06-23] MEDS: NS 0.9% 1000 ml BAG 1,000 ML IV SCH ×3 (04:44→14:31)
[2023-06-23 05:35] LABS: Hematocrit 25.9 % (35-45); Hemoglobin 8.7 g/dL (11.5-14.3); Mean Corpuscular Hemoglobin 29.7 pg (27-33); Mean Corpuscular Hgb Conc 33.6 g/dL (31-36); Mean Corpuscular Volume 88.4 fL (80-97); Mean Platelet Volume 8.2 fL (7.5-11.2); Platelet Count 184 10^3/uL (150-450); Red Blood Count 2.93 10^6/uL (3.63-4.92); Red Cell Distribution Width 14.7 % (12-17); White Blood Count 15.2 10^3/uL (3.8-11.8)
[2023-06-23 05:41] LABS: Calcium 7.2 mg/dL (8.6-10.3); Creatinine, Serum 6.1 mg/dL (0.51-0.95); Magnesium 2.4 mg/dL (1.9-2.7); eGFR CKD-EPI 7.2 (>60)
[2023-06-23] MEDS ORDERED: Potassium Chlor 20 meq TAB.ER PO ONE ×2 (07:22→16:41)
[2023-06-23] MEDS: PTO:Pancrelipase 36,000 units (NF) PO SCH ×3 (08:00→17:14)
[2023-06-23] MEDS: Calcium Carb (TUMS) 500 mg CHEW TAB PO SCH ×2 (08:00→20:51)
[2023-06-23] MEDS: Pantoprazole VIAL 40 MG VIAL IV SCH (08:01)
[2023-06-23 09:32] LABS: ABS Lymphocytes 0.6 10^3/uL (1.0-4.8); ABS Monocytes 0.8 10^3/uL (0.0-0.9); ABS Neutrophils 13.8 10^3/uL (1.5-7.6); ABS Nucleated RBC 0.04 10^3/ul; Anisocytosis 1+; Burr Cells 1+; Eosinophil % 0.1 %; Lymphocyte % 4.2 %; Nucleated Red Blood Cells % 0.2 %/100WBC (0.0-0.8)
[2023-06-23 19:21] LABS: Calcium 8.1 mg/dL (8.6-10.3); Creatinine, Serum 4.87 mg/dL (0.51-0.95); Potassium 3.9 mmol/L (3.5-5.0); eGFR CKD-EPI 9.4 (>60)
[2023-06-24] MEDS: NS 0.9% 1000 ml BAG 1,000 ML IV SCH (03:17)
[2023-06-24 05:56] LABS: ABS Eosinophils 0.2 10^3/uL (0.0-0.5); ABS Lymphocytes 1.3 10^3/uL (1.0-4.8); ABS Monocytes 1.5 10^3/uL (0.0-0.9); ABS Neutrophils 17.5 10^3/uL (1.5-7.6); ABS Nucleated RBC 0.02 10^3/ul; Eosinophil % 0.9 %; Hematocrit 25.6 % (35-45); Hemoglobin 8.4 g/dL (11.5-14.3); Lymphocyte % 6.2 %; Mean Corpuscular Hemoglobin 29.3 pg (27-33); Mean Corpuscular Hgb Conc 32.7 g/dL (31-36); Mean Corpuscular Volume 89.6 fL (80-97); Nucleated Red Blood Cells % 0.1 %/100WBC (0.0-0.8); Platelet Count 185 10^3/uL (150-450); Red Blood Count 2.86 10^6/uL (3.63-4.92); Red Cell Distribution Width 14.5 % (12-17); White Blood Count 20.5 10^3/uL (3.8-11.8)
[2023-06-24 06:16] LABS: Creatinine, Serum 4.1 mg/dL (0.51-0.95); Magnesium 2.2 mg/dL (1.9-2.7); Potassium 3.6 mmol/L (3.5-5.0); eGFR CKD-EPI 11.6 (>60)
[2023-06-24] MEDS ORDERED: Potassium Chlor 20 meq TAB.ER PO ONE (07:18)
[2023-06-24] MEDS: PTO:Pancrelipase 36,000 units (NF) PO SCH ×3 (08:39→17:39)
[2023-06-24] MEDS: Calcium Carb (TUMS) 500 mg CHEW TAB PO SCH ×2 (08:39→20:55)
[2023-06-24] MEDS: Pantoprazole VIAL 40 MG VIAL IV SCH (08:39)
[2023-06-24] MEDS ORDERED: cloNIDine 0.3 MG PATCH 0.3 MG/24 HR 7 DAY PATCH TRANSDERM SCH (12:00)
[2023-06-24] MEDS ORDERED: Al Hydrox/Mg Hydrox/Simet LIQ 30 ML UDC PO PRN (15:55)
[2023-06-24 17:07] LABS: Urine Appearance Clear; Urine Bilirubin Negative (Negative); Urine Blood 2+ (Negative); Urine Color Straw; Urine Glucose Negative (Negative); Urine Ketones Negative (Negative); Urine Nitrite Negative (Negative); Urine Protein Negative (Negative); Urine Specific Gravity 1.006 (1.002-1.030); Urine Urobilinogen Negative (Negative)
[2023-06-24 17:37] LABS: Urine Bacteria 1+ (Absent); Urine Red Blood Cell Trace(0-2/hpf) (Absent); Urine Squamous Epithelial Cell Present (Absent); Urine White Blood Cell Trace(0-5/hpf) (Absent)
[2023-06-25] MEDS ORDERED: Labetalol IV 5 MG/ML 20 ml VIAL IV PUSH ONE (00:09)
[2023-06-25] MEDS ORDERED: hydrALAZINE 20 mg/ml 1 ML Vial IV IV SLOW PU ONE (02:56)
[2023-06-25 06:52] LABS: Hematocrit 27.1 % (35-45); Hemoglobin 8.9 g/dL (11.5-14.3); Mean Corpuscular Hemoglobin 29.5 pg (27-33); Mean Corpuscular Hgb Conc 32.8 g/dL (31-36); Mean Corpuscular Volume 89.9 fL (80-97); Mean Platelet Volume 7.7 fL (7.5-11.2); Platelet Count 215 10^3/uL (150-450); Red Blood Count 3.01 10^6/uL (3.63-4.92); Red Cell Distribution Width 14.7 % (12-17); White Blood Count 16.6 10^3/uL (3.8-11.8)
[2023-06-25 07:14] LABS: Calcium 8.6 mg/dL (8.6-10.3); Creatinine, Serum 3.22 mg/dL (0.51-0.95); Magnesium 1.8 mg/dL (1.9-2.7); Potassium 4.1 mmol/L (3.5-5.0); eGFR CKD-EPI 15.5 (>60)
[2023-06-25 07:39] LABS: ABS Basophils 0.1 10^3/uL (0.0-0.1); ABS Eosinophils 0.2 10^3/uL (0.0-0.5); ABS Lymphocytes 1.5 10^3/uL (1.0-4.8); ABS Monocytes 1.9 10^3/uL (0.0-0.9); ABS Neutrophils 12.9 10^3/uL (1.5-7.6); ABS Nucleated RBC 0.02 10^3/ul; Lymphocyte % 9.3 %; Nucleated Red Blood Cells % 0.1 %/100WBC (0.0-0.8)
[2023-06-25] MEDS: PTO:Pancrelipase 36,000 units (NF) PO SCH ×2 (08:41→12:24)
[2023-06-25] MEDS: Calcium Carb (TUMS) 500 mg CHEW TAB PO SCH (08:42)
[2023-06-25] MEDS: Pantoprazole VIAL 40 MG VIAL IV SCH (08:42)
[2023-06-25 13:12] VITALS: BP 135/90
[2023-06-25 15:13] LABS: Adenovirus F40/41 Negative (Negative); Astrovirus Negative (Negative); Cryptosporidium species Negative (Negative); Cyclospora cayetanensis Negative (Negative); Entamoeba histolytica Negative (Negative); Enteroaggregative E.coli(EAEC) Negative (Negative); Enteropathogenic Ecoli(EPEC) Negative (Negative); Enterotoxigenic Ecoli(ETEC) Negative (Negative); Norovirus GI/GII Negative (Negative); Plesiomonas shigelloides Negative (Negative); Salmonella species Negative (Negative); Sapovirus Negative (Negative); Shiga toxin producing E. coli Negative (Negative); Shigella/Enteroinvasive E.coli Negative (Negative); Specimen Source STOOL; Vibrio cholerae Negative (Negative); Yersinia species Negative (Negative)
== END 2023-06-25 15:43 | disposition home or self-care (01) | DRG 392 ==
LOC: EDHOLD 07:00 → ED 07:00 → SUATTDRO 15:23 → MED 16:40
PROVIDERS: ADMIT Hospitalist; ATTEND Student in an Organized Health Care Education/Training Program

== ENCOUNTER 2023-06-27 21:48 | Inpatient (IN) ==
[2023-06-27] MEDS ORDERED: Ondansetron 4 mg VIAL 2 MG/ML 2 ml VIAL IV ONE (23:10)
[2023-06-27] MEDS ORDERED: Lactated Ringers 1000 ml BAG 1,000 ML IV ONE (23:10)
[2023-06-28 00:07] LABS: Hemoglobin 11.1 g/dL (11.5-14.3); Mean Corpuscular Hemoglobin 29.3 pg (27-33); Mean Corpuscular Hgb Conc 32.6 g/dL (31-36); Mean Corpuscular Volume 89.9 fL (80-97); Mean Platelet Volume 7.3 fL (7.5-11.2); Platelet Count 370 10^3/uL (150-450); Red Blood Count 3.78 10^6/uL (3.63-4.92); Red Cell Distribution Width 14.9 % (12-17); White Blood Count 33.4 10^3/uL (3.8-11.8)
[2023-06-28] MEDS ORDERED: Ondansetron 4 mg VIAL 2 MG/ML 2 ml VIAL IV ONE (00:11)
[2023-06-28 00:24] LABS: Albumin 4.2 g/dL (3.2-5.2); CRP High Sensitivity 26.16 mg/L (<2.00); Calcium 9.8 mg/dL (8.6-10.3); Creatinine, Serum 5.36 mg/dL (0.51-0.95); Globulin 4.1 g/dL (2-4); Potassium 4.1 mmol/L (3.5-5.0); Total Bilirubin 0.4 mg/dL (0.2-1.0); Total Protein 8.3 g/dL (6.4-8.9); eGFR CKD-EPI 8.4 (>60)
[2023-06-28] MEDS ORDERED: Lactated Ringers 1000 ml BAG 1,000 ML IV ONE (00:40)
[2023-06-28 01:04] LABS: ABS Basophils 0.1 10^3/uL (0.0-0.1); ABS Eosinophils 0.1 10^3/uL (0.0-0.5); ABS Lymphocytes 2.3 10^3/uL (1.0-4.8); ABS Monocytes 1.3 10^3/uL (0.0-0.9); ABS Neutrophils 29.7 10^3/uL (1.5-7.6); ABS Nucleated RBC 0.03 10^3/ul; Eosinophil % 0.3 %; Lymphocyte % 6.8 %; Nucleated Red Blood Cells % 0.1 %/100WBC (0.0-0.8); RBC Morphology Normal (Normal)
[2023-06-28] MEDS ORDERED: Piperacillin/Tazobac 3.375 BAG 3.375 GM/100 ML BAG IV ONE ×2 (01:25→18:00)
[2023-06-28] MEDS ORDERED: Albuterol HFA INHALER 8 gm MDI INH PRN (08:19)
[2023-06-28] MEDS: Enoxaparin 30 MG/0.3 ML SYR SUBCUT SCH (10:20)
[2023-06-28] MEDS: Lactated Ringers 1000 ml BAG 1,000 ML IV SCH ×3 (10:21→23:00)
[2023-06-28] MEDS ORDERED: Zosyn per Pharmacy NOTE FOLLOW UP SCH (18:00)
[2023-06-29] MEDS: ZOSYN 3.375 GM Q12H per EXTENDED INFUSION IV SCH ×2 (00:26→12:55)
[2023-06-29 02:41] LABS: Urine Appearance Cloudy; Urine Bilirubin Negative (Negative); Urine Blood Negative (Negative); Urine Color Yellow; Urine Glucose Negative (Negative); Urine Ketones Negative (Negative); Urine Nitrite Negative (Negative); Urine Protein Negative (Negative); Urine Specific Gravity 1.012 (1.002-1.030); Urine Urobilinogen Negative (Negative)
[2023-06-29 02:46] LABS: Urine Bacteria 1+ (Absent); Urine Red Blood Cell Trace(0-2/hpf) (Absent); Urine Squamous Epithelial Cell Present (Absent); Urine White Blood Cell 1+(6-10/hpf) (Absent)
[2023-06-29] MEDS: Lactated Ringers 1000 ml BAG 1,000 ML IV SCH ×3 (04:18→19:47)
[2023-06-29 05:37] LABS: ABS Basophils 0.1 10^3/uL (0.0-0.1); ABS Eosinophils 0.3 10^3/uL (0.0-0.5); ABS Lymphocytes 2.4 10^3/uL (1.0-4.8); ABS Neutrophils 13.4 10^3/uL (1.5-7.6); ABS Nucleated RBC 0.01 10^3/ul; Eosinophil % 1.5 %; Hematocrit 23.8 % (35-45); Hemoglobin 7.7 g/dL (11.5-14.3); Lymphocyte % 14.3 %; Mean Corpuscular Hemoglobin 29.4 pg (27-33); Mean Corpuscular Hgb Conc 32.4 g/dL (31-36); Mean Corpuscular Volume 90.5 fL (80-97); Mean Platelet Volume 6.9 fL (7.5-11.2); Platelet Count 254 10^3/uL (150-450); Red Blood Count 2.63 10^6/uL (3.63-4.92); Red Cell Distribution Width 14.3 % (12-17); White Blood Count 17.2 10^3/uL (3.8-11.8)
[2023-06-29 05:50] LABS: Calcium 7.3 mg/dL (8.6-10.3); Creatinine, Serum 5.18 mg/dL (0.51-0.95); Magnesium 1.3 mg/dL (1.9-2.7); Potassium 3.9 mmol/L (3.5-5.0); eGFR CKD-EPI 8.7 (>60)
[2023-06-29] MEDS ORDERED: Magnesium Sulfate 2 gm BAG 2 GM/50 ML BAG IVPB ONE (07:23)
[2023-06-29] MEDS: Enoxaparin 30 MG/0.3 ML SYR SUBCUT SCH (09:14)
[2023-06-29] MEDS ORDERED: Magnesium Sulfate IV 1GM/100ML 1 GM/100 ML BAG IV ONE (09:23)
[2023-06-29] MEDS ORDERED: Pantoprazole VIAL 40 MG VIAL IV ONE (14:00)
[2023-06-29 14:37] LABS: Hematocrit 22.9 % (35-45); Hemoglobin 7.5 g/dL (11.5-14.3)
[2023-06-29] MEDS: Pantoprazole VIAL 40 MG VIAL IV SCH (21:28)
[2023-06-29] MEDS: Morphine 2 MG/ML SYRINGE IV PRN (21:37)
[2023-06-30 01:21] LABS: Hematocrit 21.2 % (35-45)
[2023-06-30] MEDS: Lactated Ringers 1000 ml BAG 1,000 ML IV SCH ×2 (02:28→18:37)
[2023-06-30 05:59] LABS: ABS Eosinophils 0.2 10^3/uL (0.0-0.5); ABS Lymphocytes 1.5 10^3/uL (1.0-4.8); ABS Neutrophils 11.9 10^3/uL (1.5-7.6); ABS Nucleated RBC 0.01 10^3/ul; Eosinophil % 1.1 %; Hematocrit 20.8 % (35-45); Mean Corpuscular Hemoglobin 29.9 pg (27-33); Mean Corpuscular Hgb Conc 33.7 g/dL (31-36); Mean Corpuscular Volume 88.9 fL (80-97); Mean Platelet Volume 6.8 fL (7.5-11.2); Platelet Count 284 10^3/uL (150-450); Red Blood Count 2.34 10^6/uL (3.63-4.92); Red Cell Distribution Width 14.4 % (12-17); White Blood Count 14.5 10^3/uL (3.8-11.8)
[2023-06-30 07:27] LABS: Calcium 7.7 mg/dL (8.6-10.3); Creatinine, Serum 3.06 mg/dL (0.51-0.95); Magnesium 1.8 mg/dL (1.9-2.7); Potassium 3.6 mmol/L (3.5-5.0); eGFR CKD-EPI 16.4 (>60)
[2023-06-30] MEDS ORDERED: Magnesium Sulfate 2 gm BAG 2 GM/50 ML BAG IVPB ONE (10:30)
[2023-06-30] MEDS: Pantoprazole VIAL 40 MG VIAL IV SCH ×2 (10:41→21:09)
[2023-06-30] MEDS: Morphine 2 MG/ML SYRINGE IV PRN ×3 (10:47→21:56)
[2023-06-30] MEDS ORDERED: Midazolam 10 mg/10 ml VIAL 1 mg/ml 10 ml VIAL (10 mg) ONE (16:28)
[2023-06-30] MEDS ORDERED: fentaNYL 100 mcg/2 ml 50 MCG/ML VIAL ONE (16:28)
[2023-06-30] MEDS ORDERED: Naloxone 0.4 mg VIAL 0.4 mg/ml 1 ml VIAL IV PUSH PRN (18:34)
[2023-06-30] MEDS ORDERED: Lactated Ringers 1000 ml BAG 1,000 ML IV ONE (18:34)
[2023-06-30] MEDS ORDERED: Midazolam 10 mg/10 ml VIAL 1 mg/ml 10 ml VIAL (10 mg) IV SLOW PU ONE (18:34)
[2023-06-30] MEDS ORDERED: fentaNYL 100 mcg/2 ml 50 MCG/ML VIAL IV SLOW PU ONE (18:34)
[2023-07-01] MEDS: Lactated Ringers 1000 ml BAG 1,000 ML IV SCH ×2 (01:15→08:59)
[2023-07-01 06:47] LABS: ABS Basophils 0.1 10^3/uL (0.0-0.1); ABS Eosinophils 0.2 10^3/uL (0.0-0.5); ABS Lymphocytes 1.9 10^3/uL (1.0-4.8); ABS Monocytes 0.9 10^3/uL (0.0-0.9); ABS Neutrophils 13.2 10^3/uL (1.5-7.6); ABS Nucleated RBC 0.01 10^3/ul; Hematocrit 22.3 % (35-45); Hemoglobin 7.3 g/dL (11.5-14.3); Lymphocyte % 11.9 %; Mean Corpuscular Hemoglobin 29.6 pg (27-33); Mean Corpuscular Hgb Conc 32.9 g/dL (31-36); Mean Corpuscular Volume 89.9 fL (80-97); Mean Platelet Volume 6.6 fL (7.5-11.2); Platelet Count 337 10^3/uL (150-450); Red Blood Count 2.48 10^6/uL (3.63-4.92); Red Cell Distribution Width 14.3 % (12-17); White Blood Count 16.3 10^3/uL (3.8-11.8)
[2023-07-01 07:05] LABS: Calcium 7.8 mg/dL (8.6-10.3); Creatinine, Serum 1.92 mg/dL (0.51-0.95); Magnesium 1.6 mg/dL (1.9-2.7); Potassium 4.3 mmol/L (3.5-5.0); eGFR CKD-EPI 28.8 (>60)
[2023-07-01] MEDS ORDERED: Magnesium Sulfate 2 gm BAG 2 GM/50 ML BAG IVPB ONE (07:05)
[2023-07-01 07:09] LABS: % Iron Saturation 8 % (15-55); .Transferrin 186 mg/dL (203-362); Iron < 20 ug/dL (50-212); Total Iron Binding Capacity 260 mcg/dL (250-450); Unsaturated Iron Binding 240 ug/dL
[2023-07-01 08:06] LABS: Ferritin 69.2 ng/mL (11-307)
[2023-07-01] MEDS ORDERED: Ferric Gluconate IV 250 MG in NS 0.9% 250 ml 200 ML IVPB SCH (09:00)
[2023-07-01] MEDS ORDERED: Magnesium Sulfate IV 1GM/100ML 1 GM/100 ML BAG IV ONE (09:05)
[2023-07-01] MEDS: Pantoprazole VIAL 40 MG VIAL IV SCH (10:07)
[2023-07-01 14:38] VITALS: BP 156/79
== END 2023-07-01 15:05 | disposition home or self-care (01) | DRG 389 ==
LOC: ED 21:48 → EDHOLD 21:48 → SSU 06-28 10:07
PROVIDERS: ADMIT Student in an Organized Health Care Education/Training Program; ATTEND Student in an Organized Health Care Education/Training Program

== ENCOUNTER 2023-08-18 11:52 | Observation (INO) ==
[2023-08-18] MEDS: Al Hydrox/Mg Hydrox/Simet LIQ 30 ML UDC PO ONE (13:16)
[2023-08-18 13:18] LABS: ABS Basophils 0.1 10^3/uL (0.0-0.1); ABS Eosinophils 0.1 10^3/uL (0.0-0.5); ABS Lymphocytes 1.4 10^3/uL (1.0-4.8); ABS Monocytes 1.2 10^3/uL (0.0-0.9); ABS Neutrophils 13.5 10^3/uL (1.5-7.6); ABS Nucleated RBC 0.06 10^3/ul; Eosinophil % 0.5 %; Hematocrit 40.2 % (35-45); Hemoglobin 13.3 g/dL (11.5-14.3); Lymphocyte % 8.6 %; Mean Corpuscular Hemoglobin 29.8 pg (27-33); Mean Corpuscular Volume 90.1 fL (80-97); Mean Platelet Volume 6.8 fL (7.5-11.2); Nucleated Red Blood Cells % 0.4 %/100WBC (0.0-0.8); Platelet Count 533 10^3/uL (150-450); Red Blood Count 4.46 10^6/uL (3.63-4.92); Red Cell Distribution Width 16.1 % (12-17); White Blood Count 16.3 10^3/uL (3.8-11.8)
[2023-08-18 13:32] LABS: INR 1.12 (0.83-1.13)
[2023-08-18] MEDS: Famotidine IV 10 MG/ML 2 ml VIAL (20 mg) IV SLOW PU ONE (13:32)
[2023-08-18] MEDS: Ondansetron 4 mg VIAL 2 MG/ML 2 ml VIAL IV ONE ×2 (13:32→17:14)
[2023-08-18 13:37] LABS: C Reactive Protein 2.29 mg/L (<8.01); Magnesium 1.4 mg/dL (1.9-2.7)
[2023-08-18 13:39] LABS: Albumin 4.8 g/dL (3.2-5.2); Albumin/Globulin Ratio 1.5 (1-3); Calcium 9.3 mg/dL (8.6-10.3); Creatinine, Serum 5.22 mg/dL (0.51-0.95); Globulin 3.2 g/dL (2-4); Potassium 3.8 mmol/L (3.5-5.0); Total Bilirubin 0.4 mg/dL (0.2-1.0); eGFR CKD-EPI 8.7 (>60)
[2023-08-18 15:05] LABS: High Sensitivity Troponin 1 Hr 18 pg/mL (<15)
[2023-08-18] MEDS: NS 0.9% 1000 ml BAG 1,000 ML IV ONE (16:05)
[2023-08-18 17:27] LABS: Magnesium 1.4 mg/dL (1.9-2.7)
[2023-08-18] MEDS ORDERED: Ondansetron 4 mg VIAL 2 MG/ML 2 ml VIAL IV PRN (18:00)
[2023-08-18] MEDS ORDERED: Al Hydrox/Mg Hydrox/Simet LIQ 30 ML UDC PO PRN (18:00)
[2023-08-18] MEDS ORDERED: Albuterol HFA INHALER 8 gm MDI INH PRN (18:03)
[2023-08-18] MEDS: Morphine 4 MG/ML VIAL (1 ml) IV ONE (18:18)
[2023-08-18] MEDS: Magnesium Sulf 4 GM/100 ML IV 4,000 MG/100 ML BAG IVPB ONE (19:18)
[2023-08-18 19:55] LABS: Lipase 13 U/L (11.0-82.0)
[2023-08-18] MEDS: Mometasone/Formoter 200/5 MDI INH SCH (21:19)
[2023-08-18] MEDS: Calcium Carb (TUMS) 500 mg CHEW TAB PO SCH (21:58)
[2023-08-18] MEDS: Sucralfate 1 gm SUSP 1 GM/10 ML UDC PO SCH (21:58)
[2023-08-18] MEDS: Heparin 5000 UNITS/ML 1 mL VIAL SUBCUT SCH (22:00)
[2023-08-18 22:36] LABS: INR 1.1 (0.83-1.13)
[2023-08-18] MEDS: Lactated Ringers 1000 ml BAG 1,000 ML IV ONE (23:13)
[2023-08-18] MEDS: NF: Pancrelipase 36,000 units (NF) PO SCH (23:15)
[2023-08-18 23:44] LABS: Albumin 3.5 g/dL (3.2-5.2); Albumin/Globulin Ratio 1.5 (1-3); Calcium 8.2 mg/dL (8.6-10.3); Creatinine, Serum 5.55 mg/dL (0.51-0.95); Globulin 2.3 g/dL (2-4); Potassium 3.9 mmol/L (3.5-5.0); Total Bilirubin 0.4 mg/dL (0.2-1.0); Total Protein 5.8 g/dL (6.4-8.9)
[2023-08-19 00:21] LABS: Magnesium 3.4 mg/dL (1.9-2.7)
[2023-08-19] MEDS: Remdesivir 100 mg Vial 200 MG in NS 0.9% 250 ml 210 ML IV ONE (00:53)
[2023-08-19] MEDS: Lactated Ringers 1000 ml BAG 1,000 ML IV ONE (02:19)
[2023-08-19 02:49] LABS: Urine Appearance Clear; Urine Bilirubin Negative (Negative); Urine Blood Negative (Negative); Urine Color Light-Yellow; Urine Glucose Negative (Negative); Urine Ketones Negative (Negative); Urine Nitrite Negative (Negative); Urine Protein Trace (Negative); Urine Specific Gravity 1.009 (1.002-1.030); Urine Urobilinogen Negative (Negative)
[2023-08-19 03:37] LABS: Urine Bacteria 1+ /HPF (Absent); Urine Red Blood Cell 1+(3-5/hpf) /HPF (0-Trace); Urine Squamous Epithelial Cell Present /HPF (Absent); Urine White Blood Cell 1+(6-10/hpf) /HPF (0-Trace)
[2023-08-19 09:34] LABS: ABS Eosinophils 0.2 10^3/uL (0.0-0.5); ABS Lymphocytes 1.6 10^3/uL (1.0-4.8); ABS Monocytes 1.1 10^3/uL (0.0-0.9); ABS Neutrophils 7.3 10^3/uL (1.5-7.6); ABS Nucleated RBC 0.01 10^3/ul; Eosinophil % 1.8 %; Hematocrit 31.6 % (35-45); Hemoglobin 10.4 g/dL (11.5-14.3); Lymphocyte % 15.9 %; Mean Corpuscular Hemoglobin 29.8 pg (27-33); Mean Corpuscular Hgb Conc 33.1 g/dL (31-36); Mean Corpuscular Volume 90.2 fL (80-97); Mean Platelet Volume 6.7 fL (7.5-11.2); Nucleated Red Blood Cells % 0.1 %/100WBC (0.0-0.8); Platelet Count 384 10^3/uL (150-450); Red Cell Distribution Width 15.9 % (12-17); White Blood Count 10.3 10^3/uL (3.8-11.8)
[2023-08-19] MEDS: Fluticasone NASAL SPRAY 50MCG 16 gm SPRAY BTL INTRANASAL SCH (09:36)
[2023-08-19 09:47] LABS: INR 1.08 (0.83-1.13)
[2023-08-19 10:13] LABS: Albumin 3.6 g/dL (3.2-5.2); Albumin/Globulin Ratio 1.5 (1-3); Calcium 8.6 mg/dL (8.6-10.3); Creatinine, Serum 4.52 mg/dL (0.51-0.95); Globulin 2.4 g/dL (2-4); Magnesium 2.9 mg/dL (1.9-2.7); Potassium 3.8 mmol/L (3.5-5.0); Total Bilirubin 0.2 mg/dL (0.2-1.0); eGFR CKD-EPI 10.3 (>60)
[2023-08-19] MEDS: Lactated Ringers 1000 ml BAG 1,000 ML IV SCH (11:11)
[2023-08-19] MEDS ORDERED: Magnesium Hydroxide LIQ 30 ML UDC PO PRN (13:43)
[2023-08-19 16:16] LABS: Calcium 8.2 mg/dL (8.6-10.3); Creatinine, Serum 3.73 mg/dL (0.51-0.95); Potassium 4.1 mmol/L (3.5-5.0)
[2023-08-19] MEDS: Heparin 5000 UNITS/ML 1 mL VIAL SUBCUT SCH (20:15)
[2023-08-19] MEDS ORDERED: Remdesivir 100 mg Vial 100 MG in NS 0.9% 250 ml 230 ML IV SCH (21:00)
[2023-08-20 05:31] LABS: INR 1.13 (0.83-1.13)
[2023-08-20 05:54] LABS: ABS Basophils 0.1 10^3/uL (0.0-0.1); ABS Eosinophils 0.3 10^3/uL (0.0-0.5); ABS Lymphocytes 1.7 10^3/uL (1.0-4.8); ABS Monocytes 1.1 10^3/uL (0.0-0.9); ABS Neutrophils 5.7 10^3/uL (1.5-7.6); ABS Nucleated RBC 0.01 10^3/ul; Eosinophil % 3.4 %; Hematocrit 29.4 % (35-45); Hemoglobin 9.8 g/dL (11.5-14.3); Lymphocyte % 19.1 %; Mean Corpuscular Hemoglobin 30.4 pg (27-33); Mean Corpuscular Hgb Conc 33.4 g/dL (31-36); Mean Corpuscular Volume 91.2 fL (80-97); Mean Platelet Volume 6.9 fL (7.5-11.2); Nucleated Red Blood Cells % 0.1 %/100WBC (0.0-0.8); Platelet Count 356 10^3/uL (150-450); Red Blood Count 3.23 10^6/uL (3.63-4.92); Red Cell Distribution Width 15.9 % (12-17); White Blood Count 8.9 10^3/uL (3.8-11.8)
[2023-08-20 06:07] LABS: Albumin 3.6 g/dL (3.2-5.2); Albumin/Globulin Ratio 1.6 (1-3); Creatinine, Serum 2.6 mg/dL (0.51-0.95); Globulin 2.3 g/dL (2-4); Magnesium 2.5 mg/dL (1.9-2.7); Potassium 4.2 mmol/L (3.5-5.0); Total Bilirubin 0.3 mg/dL (0.2-1.0); Total Protein 5.9 g/dL (6.4-8.9)
[2023-08-20 10:57] VITALS: BP 154/82
== END 2023-08-20 14:00 | disposition home or self-care (01) ==
LOC: ED 11:52 → SUATTDRO 18:00 → EDHOLD 18:00 → INTOOBSV 18:00 → MED 20:22
PROVIDERS: ADMIT Internal Medicine; ATTEND Student in an Organized Health Care Education/Training Program

== ENCOUNTER 2023-10-16 01:02 | Observation (INO) ==
[2023-10-16] MEDS: Lactated Ringers 1000 ml BAG 1,000 ML IV ONE ×2 (01:23→06:05)
[2023-10-16] MEDS: Ondansetron 4 mg VIAL 2 MG/ML 2 ml VIAL IV ONE (01:23)
[2023-10-16 01:37] LABS: ABS Lymphocytes 1.8 10^3/uL (1.0-4.8); ABS Monocytes 0.9 10^3/uL (0.0-0.9); ABS Neutrophils 8.4 10^3/uL (1.5-7.6); ABS Nucleated RBC 0.03 10^3/ul; Eosinophil % 0.2 %; Hematocrit 36.9 % (35-45); Hemoglobin 12.2 g/dL (11.5-14.3); Lymphocyte % 15.8 %; Mean Corpuscular Hemoglobin 29.2 pg (27-33); Mean Corpuscular Hgb Conc 33.1 g/dL (31-36); Mean Corpuscular Volume 88.4 fL (80-97); Mean Platelet Volume 6.9 fL (7.5-11.2); Nucleated Red Blood Cells % 0.2 %/100WBC (0.0-0.8); Platelet Count 389 10^3/uL (150-450); Red Blood Count 4.18 10^6/uL (3.63-4.92); Red Cell Distribution Width 15.6 % (12-17); White Blood Count 11.2 10^3/uL (3.8-11.8)
[2023-10-16 02:48] LABS: Potassium 4.1 mmol/L (3.5-5.0)
[2023-10-16 02:49] LABS: AST 13 U/L (13-39); Magnesium 4.2 mg/dL (1.9-2.7)
[2023-10-16 02:54] LABS: ALT 7 U/L (7-52); Albumin 3.6 g/dL (3.2-5.2); Albumin/Globulin Ratio 1.3 (1-3); Alkaline Phosphatase 62 U/L (35-149); Blood Urea Nitrogen 57 mg/dL (6-24); C Reactive Protein 24.11 mg/L (<8.01); CO2 Carbon Dioxide > 45 mmol/L (22-32); Calcium 7.7 mg/dL (8.6-10.3); Chloride 78 mmol/L (101-111); Creatinine, Serum 5.33 mg/dL (0.51-0.95); Globulin 2.7 g/dL (2-4); Glucose 157 mg/dL (70-100); Lipase < 10 U/L (11.0-82.0); Sodium 137 mmol/L (135-145); Total Bilirubin 0.2 mg/dL (0.2-1.0); Total Protein 6.3 g/dL (6.4-8.9); eGFR CKD-EPI 8.4 (>60)
[2023-10-16] MEDS ORDERED: Morphine 4 MG/ML VIAL (1 ml) ONE (04:21)
[2023-10-16] MEDS: Morphine 4 MG/ML VIAL (1 ml) IV ONE (04:31)
[2023-10-16] MEDS ORDERED: Albuterol HFA INHALER 8 gm MDI INH PRN (06:26)
[2023-10-16] MEDS: Mometasone/Formoter 200/5 MDI INH SCH (08:31)
[2023-10-16] MEDS ORDERED: Calcium Carb (TUMS) 500 mg CHEW TAB ONE (09:20)
[2023-10-16] MEDS: Calcium Carb (TUMS) 500 mg CHEW TAB PO SCH (09:25)
[2023-10-16] MEDS: NF: Pancrelipase 36,000 units (NF) PO SCH (10:20)
[2023-10-16] MEDS: Lactated Ringers 1000 ml BAG 1,000 ML IV SCH ×2 (10:37→12:48)
[2023-10-16 11:21] LABS: Blood Urea Nitrogen 75 mg/dL (6-24); CO2 Carbon Dioxide > 45 mmol/L (22-32); Calcium 7.9 mg/dL (8.6-10.3); Chloride 78 mmol/L (101-111); Creatinine, Serum 5.62 mg/dL (0.51-0.95); Glucose 125 mg/dL (70-100); Sodium 133 mmol/L (135-145); eGFR CKD-EPI 7.9 (>60)
[2023-10-16] MEDS: COVID VAC 23-24(12+)(Moderna) SYR 0.5 ML IM ONE (12:46)
[2023-10-16] MEDS: Ondansetron 4 mg VIAL 2 MG/ML 2 ml VIAL IV PRN (12:52)
[2023-10-16 17:28] LABS: Blood Urea Nitrogen 76 mg/dL (6-24); CO2 Carbon Dioxide > 45 mmol/L (22-32); Calcium 7.7 mg/dL (8.6-10.3); Chloride 78 mmol/L (101-111); Creatinine, Serum 5.62 mg/dL (0.51-0.95); Glucose 106 mg/dL (70-100); Potassium 4.2 mmol/L (3.5-5.0); Sodium 131 mmol/L (135-145); eGFR CKD-EPI 7.9 (>60)
[2023-10-17 09:04] LABS: Calcium 8.2 mg/dL (8.6-10.3); Creatinine, Serum 4.41 mg/dL (0.51-0.95); Potassium 4.6 mmol/L (3.5-5.0); eGFR CKD-EPI 10.6 (>60)
[2023-10-17 18:19] LABS: Creatinine, Serum 3.87 mg/dL (0.51-0.95); Potassium 4.2 mmol/L (3.5-5.0); eGFR CKD-EPI 12.4 (>60)
[2023-10-18 06:51] LABS: Calcium 8.1 mg/dL (8.6-10.3); Creatinine, Serum 2.82 mg/dL (0.51-0.95); Magnesium 3.2 mg/dL (1.9-2.7); Potassium 4.2 mmol/L (3.5-5.0); eGFR CKD-EPI 18.1 (>60)
[2023-10-18 09:36] VITALS: BP 167/102
== END 2023-10-18 12:10 | disposition home or self-care (01) ==
LOC: MED 01:02 → ED 01:02 → SUATTDRO 05:35 → MED 08:47
PROVIDERS: ADMIT Internal Medicine; ATTEND Internal Medicine

== ENCOUNTER 2024-02-07 21:04 | Inpatient (IN) ==
[2024-02-07 21:43] LABS: ABS Basophils 0.1 10^3/uL (0.0-0.1); ABS Eosinophils 0.1 10^3/uL (0.0-0.5); ABS Lymphocytes 2.3 10^3/uL (1.0-4.8); ABS Monocytes 0.7 10^3/uL (0.0-0.9); ABS Neutrophils 8.1 10^3/uL (1.5-7.6); ABS Nucleated RBC 0.01 10^3/ul; Eosinophil % 0.7 %; Hemoglobin 13.5 g/dL (11.5-14.3); Lymphocyte % 20.4 %; Mean Corpuscular Hemoglobin 30.5 pg (27-33); Mean Corpuscular Volume 92.6 fL (80-97); Mean Platelet Volume 7.1 fL (7.5-11.2); Nucleated Red Blood Cells % 0.1 %/100WBC (0.0-0.8); Platelet Count 344 10^3/uL (150-450); Red Blood Count 4.42 10^6/uL (3.63-4.92); Red Cell Distribution Width 14.8 % (12-17); White Blood Count 11.2 10^3/uL (3.8-11.8)
[2024-02-07] MEDS: NS 0.9% 1000 ml BAG 1,000 ML IV ONE ×2 (21:46→23:23)
[2024-02-07 21:49] LABS: INR 0.97 (0.83-1.13)
[2024-02-07 22:01] LABS: Albumin 4.8 g/dL (3.2-5.2); Albumin/Globulin Ratio 1.5 (1-3); Calcium 10.1 mg/dL (8.6-10.3); Creatinine, Serum 6.22 mg/dL (0.51-0.95); Globulin 3.2 g/dL (2-4); Potassium 4.1 mmol/L (3.5-5.0); Total Bilirubin 0.3 mg/dL (0.2-1.0)
[2024-02-07] MEDS: Ondansetron 4 mg VIAL 2 MG/ML 2 ml VIAL IV ONE (22:08)
[2024-02-07] MEDS: Pantoprazole VIAL 40 MG VIAL IV ONE (22:19)
[2024-02-07] MEDS: fentaNYL 100 mcg/2 ml 50 MCG/ML VIAL IV SLOW PU ONE (22:19)
[2024-02-07] MEDS: Acetaminophen IV 1 GM/100ML 1,000 MG/100 ML BAG IV ONE (22:20)
[2024-02-07 23:40] LABS: Venous Bicarbonate HCO3 27.2 mmol/L (24-28)
[2024-02-08] LABS: Magnesium 2.7 mg/dL (1.9-2.7)
[2024-02-08 00:10] LABS: High Sensitivity Troponin 1 Hr 26 pg/mL (<15)
[2024-02-08] MEDS ORDERED: Albuterol HFA INHALER 8 gm MDI INH PRN (00:30)
[2024-02-08] MEDS: Ondansetron 4 mg VIAL 2 MG/ML 2 ml VIAL IV PRN (04:06)
[2024-02-08] MEDS: Lactated Ringers 1000 ml BAG 1,000 ML IV SCH (04:06)
[2024-02-08] MEDS: Heparin 5000 UNITS/ML 1 mL VIAL SUBCUT SCH (06:11)
[2024-02-08] MEDS: Sucralfate 1 gm SUSP 1 GM/10 ML UDC PO SCH (08:06)
[2024-02-08] MEDS: NF: Pancrelipase 36,000 units (NF) PO SCH (08:06)
[2024-02-08] MEDS: Potassium Chlor 20 meq TAB.ER PO SCH (08:06)
[2024-02-08 09:25] LABS: Calcium 8.3 mg/dL (8.6-10.3); Creatinine, Serum 5.08 mg/dL (0.51-0.95); Magnesium 2.1 mg/dL (1.9-2.7); Phosphorus 4.4 mg/dL (2.5-5.0); eGFR CKD-EPI 8.9 (>60)
[2024-02-09 00:02] LABS: Urine Appearance Clear; Urine Bilirubin Negative (Negative); Urine Blood 1+ (Negative); Urine Color Colorless; Urine Glucose Negative (Negative); Urine Ketones Negative (Negative); Urine Nitrite Negative (Negative); Urine Protein Negative (Negative); Urine Specific Gravity 1.005 (1.002-1.030); Urine Urobilinogen Negative (Negative); Urine pH 5.5 (5.0-8.0)
[2024-02-09 00:17] LABS: Urine Bacteria Absent /HPF (Absent); Urine Red Blood Cell Trace(0-2/hpf) /HPF (0-Trace); Urine Squamous Epithelial Cell Present /HPF (Absent); Urine White Blood Cell Trace(0-5/hpf) /HPF (0-Trace)
[2024-02-09 07:22] LABS: ABS Basophils 0.1 10^3/uL (0.0-0.1); ABS Eosinophils 0.1 10^3/uL (0.0-0.5); ABS Lymphocytes 2.9 10^3/uL (1.0-4.8); ABS Monocytes 0.6 10^3/uL (0.0-0.9); ABS Neutrophils 4.2 10^3/uL (1.5-7.6); Eosinophil % 1.7 %; Hematocrit 30.9 % (35-45); Hemoglobin 10.4 g/dL (11.5-14.3); Lymphocyte % 36.2 %; Mean Corpuscular Hemoglobin 31.7 pg (27-33); Mean Corpuscular Hgb Conc 33.7 g/dL (31-36); Mean Corpuscular Volume 94.1 fL (80-97); Mean Platelet Volume 7.2 fL (7.5-11.2); Platelet Count 268 10^3/uL (150-450); Red Blood Count 3.28 10^6/uL (3.63-4.92); Red Cell Distribution Width 14.7 % (12-17); White Blood Count 7.9 10^3/uL (3.8-11.8)
[2024-02-09 08:12] LABS: Calcium 8.9 mg/dL (8.6-10.3); Creatinine, Serum 3.13 mg/dL (0.51-0.95); Potassium 5.9 mmol/L (3.5-5.0)
[2024-02-09] MEDS: NS 0.9% 1000 ml BAG 1,000 ML IV SCH (08:43)
[2024-02-09] MEDS: SODIUM ZIRCONIUM CYCLOSILICATE 5 GM PACKET PO ONE (10:27)
[2024-02-09 14:14] LABS: Calcium 7.9 mg/dL (8.6-10.3); Creatinine, Serum 2.63 mg/dL (0.51-0.95); eGFR CKD-EPI 19.7 (>60)
[2024-02-10 06:32] LABS: ABS Eosinophils 0.2 10^3/uL (0.0-0.5); ABS Lymphocytes 2.4 10^3/uL (1.0-4.8); ABS Neutrophils 4.8 10^3/uL (1.5-7.6); Eosinophil % 2.7 %; Hematocrit 29.1 % (35-45); Hemoglobin 9.7 g/dL (11.5-14.3); Lymphocyte % 28.7 %; Mean Corpuscular Hgb Conc 33.1 g/dL (31-36); Mean Corpuscular Volume 93.7 fL (80-97); Mean Platelet Volume 7.2 fL (7.5-11.2); Platelet Count 233 10^3/uL (150-450); Red Blood Count 3.11 10^6/uL (3.63-4.92); Red Cell Distribution Width 14.3 % (12-17); White Blood Count 8.5 10^3/uL (3.8-11.8)
[2024-02-10 06:51] LABS: Calcium 8.8 mg/dL (8.6-10.3); Creatinine, Serum 2.12 mg/dL (0.51-0.95); Potassium 4.9 mmol/L (3.5-5.0); eGFR CKD-EPI 25.5 (>60)
[2024-02-10 09:55] VITALS: BP 166/98
[2024-02-10] MEDS: Pancrelipase 5,000 units CAP PO SCH (12:21)
== END 2024-02-10 12:30 | disposition home or self-care (01) | DRG 683 ==
LOC: EDHOLD 21:04 → ED 21:04 → SUATTDRO 23:39 → OBSVTOIN 23:39 → MED 02-08 02:16
PROVIDERS: ADMIT Hospitalist; ATTEND Student in an Organized Health Care Education/Training Program

== ENCOUNTER 2024-07-14 11:57 | Inpatient (IN) ==
[2024-07-14 13:05] LABS: ABS Basophils 0.1 10^3/uL (0.0-0.1); ABS Monocytes 1.2 10^3/uL (0.0-0.9); ABS Neutrophils 13.4 10^3/uL (1.5-7.6); ABS Nucleated RBC 0.01 10^3/ul; Eosinophil % 0.1 %; Hematocrit 41.8 % (35-45); Hemoglobin 14.3 g/dL (11.5-14.3); Lymphocyte % 6.5 %; Mean Corpuscular Hemoglobin 30.6 pg (27-33); Mean Corpuscular Hgb Conc 34.2 g/dL (31-36); Mean Corpuscular Volume 89.3 fL (80-97); Mean Platelet Volume 8.4 fL (7.5-11.2); Nucleated Red Blood Cells % 0.1 %/100WBC (0.0-0.8); Platelet Count 336 10^3/uL (150-450); Red Blood Count 4.68 10^6/uL (3.63-4.92); White Blood Count 15.7 10^3/uL (3.8-11.8)
[2024-07-14 13:16] LABS: INR 1.21 (0.85-1.14)
[2024-07-14 13:46] LABS: High Sens Troponin Baseline 77 pg/mL (<15)
[2024-07-14 14:14] LABS: CO2 Carbon Dioxide 14 mmol/L (22-32)
[2024-07-14 14:27] LABS: High Sensitivity Troponin 1 Hr 78 pg/mL (<15)
[2024-07-14 14:42] LABS: Blood Urea Nitrogen > 120 mg/dL (6-24)
[2024-07-14 14:47] LABS: ALT 7 U/L (7-52); AST 10 U/L (13-39); Albumin 4.6 g/dL (3.5-5.7); Albumin/Globulin Ratio 1.4 (1-3); Alkaline Phosphatase 80 U/L (35-149); Anion Gap 34 mmol/L (2-16); Calcium 7.3 mg/dL (8.6-10.3); Chloride 92 mmol/L (101-111); Creatinine, Serum 18.81 mg/dL (0.51-0.95); Globulin 3.2 g/dL (2-4); Glucose 153 mg/dL (70-100); Potassium 3.7 mmol/L (3.5-5.0); Sodium 140 mmol/L (135-145); Total Bilirubin 0.3 mg/dL (0.2-1.0); Total Protein 7.8 g/dL (6.4-8.9); eGFR CKD-EPI 1.8 (>60)
[2024-07-14] MEDS: Lactated Ringers 1000 ml BAG IV.FLUID IV ONE (15:23)
[2024-07-14] MEDS ORDERED: Morphine 4 MG/ML VIAL (1 ml) ONE (15:26)
[2024-07-14] MEDS: Morphine 4 MG/ML VIAL (1 ml) IV ONE (15:34)
[2024-07-14] MEDS ORDERED: Lactated Ringers 1000 ml BAG 1,000 ML IV SCH (16:00)
[2024-07-14] MEDS: Lactated Ringers 1000 ml BAG 1,000 ML IV SCH ×2 (16:08→17:10)
[2024-07-14 16:29] LABS: Phosphorus 9.1 mg/dL (2.5-5.0)
[2024-07-14] MEDS ORDERED: Albuterol HFA INHALER 8 gm MDI INH PRN ×2 (17:17→19:40)
[2024-07-14] MEDS: Lidocaine 1% MPF 5 ML VIAL INJ ONE (17:18)
[2024-07-14] MEDS: Magnesium Sulf 4 GM/100 ML IV 4,000 MG/100 ML BAG IVPB ONE (17:26)
[2024-07-14] MEDS ORDERED: Sucralfate 1 gm SUSP 1 GM/10 ML UDC PO SCH (18:00)
[2024-07-14] MEDS ORDERED: Ondansetron 4 mg VIAL 2 MG/ML 2 ml VIAL ONE (18:04)
[2024-07-14] MEDS: Ondansetron 4 mg VIAL 2 MG/ML 2 ml VIAL IV ONE (18:11)
[2024-07-14 18:23] LABS: High Sensitivity Troponin 3 Hr 77 pg/mL (<15)
[2024-07-14] MEDS ORDERED: cloNIDine 0.3 MG PATCH 0.3 MG/24 HR 7 DAY PATCH TRANSDERM SCH (20:00)
[2024-07-14] MEDS: Calcium Carb (TUMS) 500 mg CHEW TAB PO SCH (21:50)
[2024-07-14] MEDS: Heparin 5000 UNITS/ML 1 mL VIAL SUBCUT SCH (21:51)
[2024-07-14] MEDS: Sucralfate 1 gm SUSP 1 GM/10 ML UDC PO SCH (21:51)
[2024-07-14] MEDS: Morphine 2 MG/ML SYRINGE IV PRN (23:55)
[2024-07-15 00:12] LABS: Anion Gap 26 mmol/L (2-16); CO2 Carbon Dioxide 15 mmol/L (22-32); Calcium 7.3 mg/dL (8.6-10.3); Chloride 91 mmol/L (101-111); Creatinine, Serum 17.08 mg/dL (0.51-0.95); Glucose 108 mg/dL (70-100); Potassium 3.1 mmol/L (3.5-5.0); Sodium 132 mmol/L (135-145); eGFR CKD-EPI 2.1 (>60)
[2024-07-15] MEDS: Mometasone/Formoter 200/5 MDI INH SCH (00:12)
[2024-07-15 00:16] LABS: Blood Urea Nitrogen > 120 mg/dL (6-24)
[2024-07-15] MEDS: KCL 20 MEQ/100 ML IVPREMIX 20 MEQ/100 ML BAG IV ONE (04:35)
[2024-07-15 07:37] LABS: ABS Eosinophils 0.1 10^3/uL (0.0-0.5); ABS Lymphocytes 1.5 10^3/uL (1.0-4.8); ABS Monocytes 1.4 10^3/uL (0.0-0.9); ABS Neutrophils 11.9 10^3/uL (1.5-7.6); ABS Nucleated RBC 0.01 10^3/ul; Eosinophil % 0.8 %; Hematocrit 33.3 % (35-45); Hemoglobin 11.2 g/dL (11.5-14.3); Mean Corpuscular Hemoglobin 29.8 pg (27-33); Mean Corpuscular Hgb Conc 33.7 g/dL (31-36); Mean Corpuscular Volume 88.4 fL (80-97); Mean Platelet Volume 8.5 fL (7.5-11.2); Nucleated Red Blood Cells % 0.1 %/100WBC (0.0-0.8); Platelet Count 235 10^3/uL (150-450); Red Blood Count 3.76 10^6/uL (3.63-4.92); Red Cell Distribution Width 14.2 % (12-17)
[2024-07-15] MEDS: Potassium Chlor 20 meq TAB.ER PO SCH (08:19)
[2024-07-15] MEDS: [UNRECOGNIZED DRUG - REMARK] PO SCH (08:20)
[2024-07-15 08:50] LABS: Anion Gap 28 mmol/L (2-16); CO2 Carbon Dioxide 12 mmol/L (22-32); Calcium 7.1 mg/dL (8.6-10.3); Chloride 94 mmol/L (101-111); Creatinine, Serum 15.01 mg/dL (0.51-0.95); Glucose 94 mg/dL (70-100); Magnesium 2.2 mg/dL (1.9-2.7); Phosphorus 5.4 mg/dL (2.5-5.0); Potassium 3.2 mmol/L (3.5-5.0); Sodium 134 mmol/L (135-145); eGFR CKD-EPI 2.4 (>60)
[2024-07-15 08:59] LABS: Blood Urea Nitrogen > 120 mg/dL (6-24)
[2024-07-15] MEDS: Lactated Ringers 1000 ml BAG 1,000 ML IV SCH (09:10)
[2024-07-15] MEDS: Potassium Chlor 20 meq TAB.ER PO ONE (13:28)
[2024-07-15 15:45] LABS: Urine Appearance Extra Turbid; Urine Bilirubin Negative (Negative); Urine Blood 3+ (Negative); Urine Glucose Negative (Negative); Urine Ketones Negative (Negative); Urine Nitrite Negative (Negative); Urine Protein 1+ (>=30 mg/dL) (Negative); Urine Specific Gravity 1.015 (1.002-1.030); Urine Urobilinogen Negative (Negative)
[2024-07-15 15:51] LABS: Urine Bacteria 3+ /HPF (Absent); Urine Red Blood Cell 3+(>10/hpf) /HPF (0-Trace); Urine White Blood Cell 3+(>20/hpf) /HPF (0-Trace)
[2024-07-15 15:52] LABS: Urine Color Brown
[2024-07-15 19:49] LABS: Anion Gap 14 mmol/L (2-16); Blood Urea Nitrogen > 120 mg/dL (6-24); CO2 Carbon Dioxide 15 mmol/L (22-32); Calcium 7.3 mg/dL (8.6-10.3); Chloride 104 mmol/L (101-111); Creatinine, Serum 10.52 mg/dL (0.51-0.95); Glucose 102 mg/dL (70-100); Potassium 3.3 mmol/L (3.5-5.0); Sodium 133 mmol/L (135-145); eGFR CKD-EPI 3.7 (>60)
[2024-07-15] MEDS: PTO: Albuterol HFA INHALER 8 gm MDI INH PRN (21:22)
[2024-07-16 06:27] LABS: ABS Basophils 0.1 10^3/uL (0.0-0.1); ABS Eosinophils 0.3 10^3/uL (0.0-0.5); ABS Lymphocytes 1.9 10^3/uL (1.0-4.8); ABS Monocytes 1.2 10^3/uL (0.0-0.9); ABS Neutrophils 9.8 10^3/uL (1.5-7.6); Eosinophil % 2.1 %; Hematocrit 24.1 % (35-45); Hemoglobin 8.3 g/dL (11.5-14.3); Lymphocyte % 14.1 %; Mean Corpuscular Hemoglobin 30.5 pg (27-33); Mean Corpuscular Hgb Conc 34.3 g/dL (31-36); Mean Corpuscular Volume 88.9 fL (80-97); Mean Platelet Volume 8.9 fL (7.5-11.2); Platelet Count 200 10^3/uL (150-450); Red Blood Count 2.71 10^6/uL (3.63-4.92); Red Cell Distribution Width 13.9 % (12-17); White Blood Count 13.2 10^3/uL (3.8-11.8)
[2024-07-16 06:31] LABS: Blood Urea Nitrogen > 120 mg/dL (6-24)
[2024-07-16 06:37] LABS: Anion Gap 10 mmol/L (2-16); CO2 Carbon Dioxide 19 mmol/L (22-32); Calcium 8.3 mg/dL (8.6-10.3); Chloride 107 mmol/L (101-111); Glucose 118 mg/dL (70-100); Phosphorus 3.2 mg/dL (2.5-5.0); Potassium 3.6 mmol/L (3.5-5.0); Sodium 136 mmol/L (135-145); eGFR CKD-EPI 4.7 (>60)
[2024-07-16] MEDS: Potassium Chlor 20 meq TAB.ER PO ONE (13:06)
[2024-07-16 15:32] LABS: % Iron Saturation 31 % (15-55); .Transferrin 166 mg/dL (203-362); Iron 71 ug/dL (50-212); Total Iron Binding Capacity 232 mcg/dL (250-450); Unsaturated Iron Binding 161 ug/dL
[2024-07-16] MEDS: Pancrelipase 5,000 units CAP PO SCH (17:11)
[2024-07-17 08:05] LABS: Hematocrit 25.5 % (35-45); Hemoglobin 8.6 g/dL (11.5-14.3); Mean Corpuscular Hemoglobin 30.4 pg (27-33); Mean Corpuscular Hgb Conc 33.9 g/dL (31-36); Mean Corpuscular Volume 89.8 fL (80-97); Mean Platelet Volume 8.7 fL (7.5-11.2); Platelet Count 196 10^3/uL (150-450); Red Blood Count 2.84 10^6/uL (3.63-4.92); Red Cell Distribution Width 14.2 % (12-17); White Blood Count 12.2 10^3/uL (3.8-11.8)
[2024-07-17 09:04] LABS: Calcium 8.5 mg/dL (8.6-10.3); Creatinine, Serum 3.31 mg/dL (0.51-0.95); Potassium 5.1 mmol/L (3.5-5.0); eGFR CKD-EPI 14.9 (>60)
[2024-07-17 10:18] LABS: Ferritin 120.2 ng/mL (11-307)
[2024-07-17] MEDS: cloNIDine 0.3 MG PATCH 0.3 MG/24 HR 7 DAY PATCH TRANSDERM SCH (14:36)
[2024-07-17] MEDS ORDERED: Senna TAB 8.6 mg TAB PO PRN (14:44)
[2024-07-17] MEDS ORDERED: Magnesium Hydroxide LIQ 30 ML UDC PO PRN (14:44)
[2024-07-17] MEDS: Polyethylene Glycol 3350 17 GM PACKET PO PRN (17:06)
[2024-07-17] MEDS: Senna TAB 8.6 mg TAB PO SCH (20:26)
[2024-07-17] MEDS ORDERED: Magnesium Hydroxide LIQ 30 ML UDC PO SCH (21:00)
[2024-07-18 06:23] LABS: ABS Basophils 0.1 10^3/uL (0.0-0.1); ABS Eosinophils 0.4 10^3/uL (0.0-0.5); ABS Lymphocytes 1.8 10^3/uL (1.0-4.8); ABS Monocytes 1.1 10^3/uL (0.0-0.9); ABS Neutrophils 8.8 10^3/uL (1.5-7.6); ABS Nucleated RBC 0.01 10^3/ul; Eosinophil % 3.3 %; Hematocrit 25.6 % (35-45); Hemoglobin 8.5 g/dL (11.5-14.3); Lymphocyte % 14.9 %; Mean Corpuscular Hemoglobin 29.9 pg (27-33); Mean Corpuscular Hgb Conc 33.3 g/dL (31-36); Mean Corpuscular Volume 89.8 fL (80-97); Mean Platelet Volume 8.7 fL (7.5-11.2); Nucleated Red Blood Cells % 0.1 %/100WBC (0.0-0.8); Platelet Count 228 10^3/uL (150-450); Red Blood Count 2.85 10^6/uL (3.63-4.92); Red Cell Distribution Width 13.9 % (12-17); White Blood Count 12.3 10^3/uL (3.8-11.8)
[2024-07-18 06:49] LABS: Calcium 8.4 mg/dL (8.6-10.3); Creatinine, Serum 2.47 mg/dL (0.51-0.95); Potassium 4.9 mmol/L (3.5-5.0); eGFR CKD-EPI 21.1 (>60)
[2024-07-18 08:04] LABS: Magnesium 1.4 mg/dL (1.9-2.7); Phosphorus 2.1 mg/dL (2.5-5.0)
[2024-07-18] MEDS: Magnesium Sulf 4 GM/100 ML IV 4,000 MG/100 ML BAG IVPB ONE (10:53)
[2024-07-18 13:46] VITALS: BP 148/8
== END 2024-07-18 15:00 | disposition home or self-care (01) | DRG 684 ==
LOC: ED 11:57 → EDHOLD 11:57 → MED 20:14
PROVIDERS: ADMIT Internal Medicine; ATTEND Internal Medicine